=== PATIENT | male | born 1945 | race Caucasian/White ===

== ENCOUNTER 2025-01-14 14:50 | Inpatient (IN) | payer MEDICARE, OTHER, SELFPAY ==
[2025-01-14] VITALS (20 sets, daily range): BP systolic 109–147; BP diastolic 71–109; PULSE 79–130; RESP 11–23; TEMP 36.6–36.7; O2SAT 80–99; BMI 30.3; BMI 28.8
--- NOTE | ~2025-01-14 | CT_ITS ---
CTA abdomen pelvis INDICATION: gi bleed COMPARISON: None. TECHNIQUE: Axial 2.5 mm images of the abdomen and pelvis were obtained without and with infusion of 100 cc Isovue-300 intravenous contrast. On an independent workstation, 0.625 mm reformatted images were utilized to render MIP and MPR reconstructed images of the abdominal and pelvic vasculature. FINDINGS: The abdominal aorta, visceral vessels and renal arteries demonstrate normal caliber and patency. There are atherosclerotic vascular calcification within the renal artery and aorta as well as the branch vessels. There is marked atherosclerotic plaques at the origin of the right internal iliac artery is causing focal severe stenosis. The vessel fills normally distally. There is no aortic aneurysm. The left iliac and visualized femoral vessels are widely patent. There is no blush to suggest active GI bleeding. NONVASCULAR FINDINGS: The liver parenchyma is unremarkable. No intrahepatic mass or ductal dilatation is evident. The gallbladder is unremarkable. The pancreas and spleen are normal in appearance. The adrenal glands are symmetric in size. The kidneys are unremarkable. No intrarenal stones are noted. There is no hydronephrosis. Colonic diverticulosis without evidence of acute diverticulitis. The stomach and bowel loops are unremarkable. The bladder and rectum are normal in appearance. No free fluid or air is evident. There is no abdominal or pelvic lymphadenopathy. The lower thoracic and lumbar spines are unremarkable. The lung bases are clear. IMPRESSION: There is marked atherosclerotic plaque at the origin of the right internal iliac artery causing severe stenosis. The basilar fills distally. Clinically indicated a follow-up conventional angiogram can be done for further evaluation. There is no blush to suggest acute GI bleed. Colonic diverticulosis without evidence of acute diverticulitis. All CT scans at this facility are performed using low dose modulation techniques as appropriate to perform exam including the following: automated exposure control; use of iterative reconstruction technique; adjustment of the mA and/or kV according to patient size (this includes techniques or standardized protocols for targeted exams where dose is matched to indication/reason for exam). Reviewed, dictated and finalized at location S. IMPRESSION: There is marked atherosclerotic plaque at the origin of the right internal sancho c artery causing severe stenosis. The basilar fills distally. Clinically indica amanuel a follow-up conventional angiogram can be done for further evaluation. There is no blush to suggest acute GI bleed. Colonic diverticulosis without evidence of acute diverticulitis. All CT scans at this facility are performed using low dose modulation techniqu es as appropriate to perform exam including the following: automated exposure c ontrol; use of iterative reconstruction technique; adjustment of the mA and/or kV according to patient size (this includes techniques or standardized protocol s for targeted exams where dose is matched to indication/reason for exam).
--- NOTE | ~2025-01-14 | XR_ITS ---
EXAMINATION: XR chest 1V portable COMPARISON: No comparisons available. HISTORY: new onset afib, vomiting, sob FINDINGS: The lungs are clear, no effusion. No pneumothorax. Heart is normal size. Mediastinal and hilar contours are within normal limits. Bony thorax no acute abnormality. Miscellaneous: None Impression: No acute cardiopulmonary abnormality. Reviewed, dictated and finalized at location P. Impression: No acute cardiopulmonary abnormality.
--- NOTE | 2025-01-14 15:01 | ECG_ITS ---
Test Date: 2025-01-14 15:05:24 Measurements Intervals Welsh Rate: 122 P: 0 WI: 0 QRS: -80 QRSD: 130 T: 66 QT: 335 QTc: 478 Interpretive Statements SINUS TACHYCARDIA RIGHT BUNDLE BRANCH BLOCK LEFT ANTERIOR FASCICULAR BLOCK BASELINE ARTIFACT- I, III, AVR, AVL, AVF ABNORMAL ECG No previous ECG available for comparison Electronically Signed On 01-14-2025 15:16:27 CDT by Matti Barrett D.O.
--- NOTE | 2025-01-14 15:07 | ED.GIBLEED ---
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 Patient reports he has been vomiting dark black coffee-ground material for the past 2 days. He he also reports having dark black stools for the past 2 days. Reports having intermittent abdominal cramping, dizziness, weakness, shortness of breath with exertion. Denies chest pain. Patient is not on any anticoagulation that he is aware of. Takes an aspirin 81mg daily. GENERAL: Elderly, ill appearing, obese with BMI of 30.3, and in no acute distress. HEAD: Normocephalic, atraumatic. CHEST: Clear to auscultation. ?No respiratory distress. HEART: Tachycardic with irregular rhythm.? NEURO: ?Alert and oriented x3. Patient screened in triage and initial orders placed.? ?Additional care and disposition to be based upon?diagnostic testing and treatment. <Leyla Gould PA-C - Last Filed: 01/14/25 15:12> Source: patient <Leyla Gould PA-C - Last Filed: 01/14/25 15:12> Mode of arrival: ambulatory <Leyla Gould PA-C - Last Filed: 01/14/25 15:12> Limitations: no limitations <NORM Hendrix Last Filed: 01/14/25 15:12> History of Present Illness HPI Narrative: Agree with HPI <Flaquito Vera MD - Last Filed: 01/14/25 22:33> Related Data Home medications: Home Medications ?Medication ?Instructions ?Recorded ?Confirmed ?Last Taken ?Type allopurinol 100 mg tablet 100 mg PO DAILY 01/14/25 01/14/25 01/12/25 History amlodipine 5 mg tablet 5 mg PO DAILY HTN 01/14/25 01/14/25 01/12/25 History aspirin 325 mg capsule 325 mg PO DAILY 01/14/25 01/14/25 01/12/25 History cholecalciferol (vitamin D3) 25 25 mcg PO DAILY 01/14/25 01/14/25 01/12/25 History mcg (1,000 unit) capsule finasteride 5 mg tablet 5 mg PO DAILY 01/14/25 01/14/25 01/12/25 History lisinopril 40 mg tablet 40 mg PO DAILY 01/14/25 01/14/25 01/12/25 History metformin 1,000 mg tablet 500 mg PO BID 01/14/25 01/14/25 01/12/25 History metoprolol tartrate 50 mg tablet 25 mg PO BID 01/14/25 01/14/25 01/12/25 History simvastatin 80 mg tablet 40 mg PO HS 01/14/25 01/14/25 01/12/25 History <Leyla Gould PA-C - Last Filed: 01/14/25 15:12> Allergies/Adverse reactions: Allergies Allergy/AdvReac Type Severity Reaction Status Date / Time No Known Allergies Allergy Verified 01/14/25 18:52 <Leyla Gould PA-C - Last Filed: 01/14/25 15:12> Review of Systems Review of Systems: Gen.: Denies fevers or chills Eyes: Denies eye pain or visual change ENT: Denies congestion Respiratory: Denies shortness of breath or cough CV: Denies chest pain or palpitations GI: As per HPI denies burning, urgency, frequency or hematuria Musculoskeletal: Denies back pain or muscle pain Neuro: Denies numbness, tingling, weakness or focal weakness Skin: Denies rash Except as documented, all other systems reviewed and negative <Flaquito Vera MD - Last Filed: 01/14/25 22:33> [facility] Social History Social History: Social History Smoking status: Former smoker Alcohol intake: never Substance use: never Lack of Transportation: No Lack of Food: Never True Current Housing: I Have Housing Concerned About Future Housing: No Difficulty Paying Gas/Electric Bills: No Difficulty Paying for Meds: No Currently Unemployed: No Education: High School Diploma/GED Difficulty w/ Childcare or Family Care: No Spiritual care concerns: No <Leyla Gould PA-C - Last Filed: 01/14/25 15:12> Exam Narrative: APPEARANCE: No acute distress, nontoxic, resting in bed EYES: EOMI HEENT: Normocephalic, atraumatic, OMM RESPIRATORY: No respiratory distress Clear to auscultation bilaterally with no rhonchi wheezing or rales. CARDIOVASCULAR: Irregularly irregular without murmurs rubs or gallops. ABDOMINAL: Soft, mild epigastric tenderness to palpation, nondistended, no rebound or guarding MUSCULOSKELETAl: Moves all extremities. No clubbing, cyanosis or edema. NEURO: Awake and alert. Following commands, speech normal, no focal deficits SKIN:: Warm, dry. No rashes lesions or abrasions PSYCHIATRIC: Normal affect/mood, <Flaquito Vera MD - Last Filed: 01/14/25 22:33> Course Vital Signs Vital signs: Vital Signs Temperature 97.9 F 01/14/25 14:57 Pulse Rate 130 H 01/14/25 14:57 Respiratory Rate 18 01/14/25 14:57 Blood Pressure 145/79 H 01/14/25 14:57 Pulse Oximetry 98 01/14/25 14:57 Oxygen Delivery Room Air 01/14/25 14:57 Temperature 98.0 F 01/14/25 20:00 Pulse Rate 79 01/14/25 22:00 Respiratory Rate 18 01/14/25 20:00 Blood Pressure 127/82 01/14/25 20:00 Pulse Oximetry 95 01/14/25 20:00 Oxygen Delivery Room Air 01/14/25 14:57 <Leyla Gould PA-C - Last Filed: 01/14/25 15:12> Vital Signs Temperature 97.9 F 01/14/25 14:57 Pulse Rate 130 H 01/14/25 14:57 Respiratory Rate 18 01/14/25 14:57 Blood Pressure 145/79 H 01/14/25 14:57 Pulse Oximetry 98 01/14/25 14:57 Oxygen Delivery Room Air 01/14/25 14:57 Temperature 98.0 F 01/14/25 20:00 Pulse Rate 79 01/14/25 22:00 Respiratory Rate 18 01/14/25 20:00 Blood Pressure 127/82 01/14/25 20:00 Pulse Oximetry 95 01/14/25 20:00 Oxygen Delivery Room Air 01/14/25 14:57 <Flaquito Vera MD - Last Filed: 01/14/25 22:33> MDM - GI Bleed MDM Narrative Medical decision making narrative: MSE by DILLON in triage. <Leyla Gould PA-C - Last Filed: 01/14/25 15:12> MSE by DILLON in triage. 79-year-old male presenting for concerns for GI bleed. On initial evaluation, patient was in no acute distress afebrile, hemodynamically stable. He was tachycardic to the 130s on the monitor did appear to be in AFib. Patient was started Cardizem drip and bolus. Patient had multiple small episodes coffee-ground emesis in his. Abdomen remains soft and nontender. He had a leukocytosis at 15.2 with anemia at 10.6. Lactic acid was elevated at 6.2. Creatinine elevated to 1.85. He had an anion gap of 20 likely due to the lactic acidosis. Chest x-ray showed no acute process. CTA abdomen pelvis was obtained due to likely GI bleed which showed no acute GI bleed, did show a significant stenosis of the right iliac artery. Case was discussed with GI, Dr. Jackson, who will see the patient as consult. Case was discussed with hospitalist who will admit the patient. <Flaquito Vera MD - Last Filed: 01/14/25 22:33> Differential Diagnosis Differential diagnosis: Likely Alexa-Michael syndrome, Upper gastrointestinal hemorrhage, Lower gastrointestinal hemorrhage, hematochezia, melena and other (AFib, ACS) <Flaquito Vera MD - Last Filed: 01/14/25 22:33> Medical Records Attestation: I reviewed the patient's medical records. <Flaquito Vera MD - Last Filed: 01/14/25 22:33> Lab Data Attestation: I reviewed the patient's lab results. <Flaquito Vera MD - Last Filed: 01/14/25 22:33> Result diagrams: 01/14/25 17:35 01/14/25 15:19 <Leyla Gould PA-C - Last Filed: 01/14/25 15:12> Labs: Lab Results 01/14/25 Range/Units 15:19 WBC 16.7 H (4.5-10.0) K/mm3 RBC 3.63 L (4.6-6.20) M/mm3 Hgb 11.4 L (14.0-18.0) g/dL Hct 34.1 L (42.0-52.0) % MCV 93.9 (80-100) fl MCH 31.4 (26-34) pg MCHC 33.4 (32-36) g/dl RDW 13.6 (11.5-14.5) % Plt Count 291 (150-375) k/mm3 MPV 9.5 (7.4-10.4) fl Immature Gran % (Auto) 0.8 H (0-0.5) % Neut % (Auto) 86.3 H (45.5-73.1) % Lymph % (Auto) 9.6 L (18.3-44.2) % Barnwell % (Auto) 3.1 (2.6-8.5) % Eos % (Auto) 0.0 (0-4.4) % Baso % (Auto) 0.2 (0.2-1.2) % Lymph # (Auto) 1.61 (0.9-3.2) K/mm3 Barnwell # (Auto) 0.5 (0.1-0.6) K/mm3 Eos # (Auto) 0.0 (0-0.3) K/mm3 Baso # (Auto) 0.0 (0.0-0.1) K/mm3 Abs Immat Gran (auto) 0.13 H (0.00-0.031) K/mm3 Absolute Neuts (auto) 14.4 H (1.3-6.7) K/mm3 Absolute Nucleated RBC 0.000 (0.0-0.012) K/mm3 Nucleated RBC % 0.0 (0.0-0.2) % PT 13.9 (11.1-14.7) Seconds INR 1.1 APTT 22.7 (22.3-36.8) Seconds Sodium 140 (137-145) mmol/L Potassium 4.7 (3.4-5.0) mmol/L Chloride 106 (98-107) mmol/L Carbon Dioxide 14 L (22-30) mmol/L Anion Gap 20 H (4-12) mmol/L BUN 59 H (9-20) mg/dL Creatinine 1.85 H (0.7-1.3) mg/dL Estim Creat Clear Calc 29 ml/min Estimated GFR 35 L (59 - ) Glucose 230 H (65-110) mg/dL Lactic Acid 6.2 H* (0.7-2.0) mmol/L Calcium 9.3 (8.4-10.2) mg/dL Magnesium 1.6 (1.6-2.3) mg/dL Total Bilirubin 1.8 H (0.2-1.3) mg/dL AST 36 (17-59) U/L ALT 44 (6-50) U/L Alkaline Phosphatase 48 (38-126) U/L Troponin I 0.032 (0.000-0.034) ng/mL Total Protein 7.9 (6.3-8.2) g/dL Albumin 4.7 (3.5-5.1) g/dL Blood Type A Positive Antibody Screen Negative <Leyla Gould PA-C - Last Filed: 01/14/25 15:12> Lab Results 01/14/25 Range/Units 15:19 WBC 16.7 H (4.5-10.0) K/mm3 RBC 3.63 L (4.6-6.20) M/mm3 Hgb 11.4 L (14.0-18.0) g/dL Hct 34.1 L (42.0-52.0) % MCV 93.9 (80-100) fl MCH 31.4 (26-34) pg MCHC 33.4 (32-36) g/dl RDW 13.6 (11.5-14.5) % Plt Count 291 (150-375) k/mm3 MPV 9.5 (7.4-10.4) fl Immature Gran % (Auto) 0.8 H (0-0.5) % Neut % (Auto) 86.3 H (45.5-73.1) % Lymph % (Auto) 9.6 L (18.3-44.2) % Barnwell % (Auto) 3.1 (2.6-8.5) % Eos % (Auto) 0.0 (0-4.4) % Baso % (Auto) 0.2 (0.2-1.2) % Lymph # (Auto) 1.61 (0.9-3.2) K/mm3 Barnwell # (Auto) 0.5 (0.1-0.6) K/mm3 Eos # (Auto) 0.0 (0-0.3) K/mm3 Baso # (Auto) 0.0 (0.0-0.1) K/mm3 Abs Immat Gran (auto) 0.13 H (0.00-0.031) K/mm3 Absolute Neuts (auto) 14.4 H (1.3-6.7) K/mm3 Absolute Nucleated RBC 0.000 (0.0-0.012) K/mm3 Nucleated RBC % 0.0 (0.0-0.2) % PT 13.9 (11.1-14.7) Seconds INR 1.1 APTT 22.7 (22.3-36.8) Seconds Sodium 140 (137-145) mmol/L Potassium 4.7 (3.4-5.0) mmol/L Chloride 106 (98-107) mmol/L Carbon Dioxide 14 L (22-30) mmol/L Anion Gap 20 H (4-12) mmol/L BUN 59 H (9-20) mg/dL Creatinine 1.85 H (0.7-1.3) mg/dL Estim Creat Clear Calc 29 ml/min Estimated GFR 35 L (59 - ) Glucose 230 H (65-110) mg/dL Lactic Acid 6.2 H* (0.7-2.0) mmol/L Calcium 9.3 (8.4-10.2) mg/dL Magnesium 1.6 (1.6-2.3) mg/dL Total Bilirubin 1.8 H (0.2-1.3) mg/dL AST 36 (17-59) U/L ALT 44 (6-50) U/L Alkaline Phosphatase 48 (38-126) U/L Troponin I 0.032 (0.000-0.034) ng/mL Total Protein 7.9 (6.3-8.2) g/dL Albumin 4.7 (3.5-5.1) g/dL Blood Type A Positive Antibody Screen Negative <Flaquito Vera MD - Last Filed: 01/14/25 22:33> Imaging Data Attestation: I personally reviewed and interpreted this imaging study as follows: <Flaquito Vera MD - Last Filed: 01/14/25 22:33> Radiologist's impression: Impressions Chest X-Ray 01/14/25 15:37 Impression: No acute cardiopulmonary abnormality. Abdomen/Pelvis CTA 01/14/25 16:38 IMPRESSION: There is marked atherosclerotic plaque at the origin of the right internal iliac artery causing severe stenosis. The basilar fills distally. Clinically indicated a follow-up conventional angiogram can be done for further evaluation. There is no blush to suggest acute GI bleed. Colonic diverticulosis without evidence of acute diverticulitis. All CT scans at this facility are performed using low dose modulation techniques as appropriate to perform exam including the following: automated exposure control; use of iterative reconstruction technique; adjustment of the mA and/or kV according to patient size (this includes techniques or standardized protocols for targeted exams where dose is matched to indication/reason for exam). <Flaquito Vera MD - Last Filed: 01/14/25 22:33> ECG Data EKG #1: Attestation: I personally reviewed and interpreted this ECG as follows: <Flaquito Vera MD - Last Filed: 01/14/25 22:33> ECG completion date: 01/14/25 <Flaquito Vera MD - Last Filed: 01/14/25 22:33> ECG completion time: 15:05 <Flaquito Vera MD - Last Filed: 01/14/25 22:33> Interpretation: Sinus tachycardia rate of 130, right bundle-branch block, left anterior fascicular block, no acute ST or T-wave changes <Flaquito Vera MD - Last Filed: 01/14/25 22:33> Discharge Plan Discharge Clinical Impression: Acute upper GI bleed, Acidosis, lactic, RADHA (acute kidney injury) <NORM Hendrix Last Filed: 01/14/25 15:12> Patient Disposition: Still a Patient <Leyla Gould PA-C - Last Filed: 01/14/25 15:12> Condition: Serious <Leyla Gould PA-C - Last Filed: 01/14/25 15:12>
[2025-01-14 15:27] LABS: Hematocrit 34.1 % (42.0-52.0); Hemoglobin 11.4 g/dL (14.0-18.0); Immature Granulocyte Percent A 0.8 % (0-0.5); Lymphocytes Absolute Auto 1.61 K/mm3 (0.9-3.2); Mean Corpuscular HGB Conc 33.4 g/dl (32-36); Mean Corpuscular Hemoglobin 31.4 pg (26-34); Mean Corpuscular Volume 93.9 fl (80-100); Nucleated Red Blood Cells Absolute Auto 0.000 K/mm3 (0.0-0.012); Nucleated Red Blood Cells Perc 0.0 % (0.0-0.2); Platelet Count Result 291 k/mm3 (150-375); Red Blood Count 3.63 M/mm3 (4.6-6.20); White Blood Count 16.7 K/mm3 (4.5-10.0)
[2025-01-14] MEDS: PANTOPRAZOLE SODIUM IV 40 MG VIAL IV PUSH (15:27)
[2025-01-14 15:39] LABS: Alanine Aminotransferase 44 U/L (6-50); Albumin Level 4.7 g/dL (3.5-5.1); Alkaline Phosphatase 48 U/L (38-126); Anion Gap 20 mmol/L (4-12); Aspartate Amino Transferase 36 U/L (17-59); Bilirubin,Total 1.8 mg/dL (0.2-1.3); Blood Urea Nitrogen 59 mg/dL (9-20); Calcium 9.3 mg/dL (8.4-10.2); Carbon Dioxide 14 mmol/L (22-30); Chloride 106 mmol/L (98-107); Estimated CRCL calculation 29 ml/min; Estimated Glomerular Filt Rate 35; Glucose 230 mg/dL (65-110); Magnesium 1.6 mg/dL (1.6-2.3); Potassium 4.7 mmol/L (3.4-5.0); Sodium 140 mmol/L (137-145); Total Protein 7.9 g/dL (6.3-8.2)
[2025-01-14 15:50] LABS: Troponin I 0.032 ng/mL (0.000-0.034)
[2025-01-14 15:51] LABS: INR 1.1; Prothrombin Time 13.9 Seconds (11.1-14.7)
[2025-01-14 15:52] LABS: Partial Thromboplastin Time 22.7 Seconds (22.3-36.8)
[2025-01-14] MEDS: ONDANSETRON INJ 4 MG/2 ML VIAL IV PUSH (16:02)
[2025-01-14] MEDS: PANTOPRAZOLE SODIUM IV 40 MG VIAL 80 MG IV PUSH (17:16)
[2025-01-14] MEDS: dilTIAZem 100 MG/100 ML 100 MG/100 ML BAG IV CONT (17:22)
--- NOTE | 2025-01-14 17:46 | PC.NURSE ---
RN ordered a dinner tray for patient.
[2025-01-14 17:51] LABS: Hematocrit 31.7 % (42.0-52.0); Hemoglobin 10.6 g/dL (14.0-18.0); Immature Granulocyte Percent A 0.7 % (0-0.5); Lymphocytes Absolute Auto 1.43 K/mm3 (0.9-3.2); Mean Corpuscular HGB Conc 33.4 g/dl (32-36); Mean Corpuscular Hemoglobin 31.3 pg (26-34); Mean Corpuscular Volume 93.5 fl (80-100); Nucleated Red Blood Cells Absolute Auto 0.000 K/mm3 (0.0-0.012); Nucleated Red Blood Cells Perc 0.0 % (0.0-0.2); Platelet Count Result 258 k/mm3 (150-375); Red Blood Count 3.39 M/mm3 (4.6-6.20); White Blood Count 15.2 K/mm3 (4.5-10.0)
--- NOTE | 2025-01-14 18:47 | PC.NURSE ---
Arrived to the floor via stretcher at approximately 1823pm. Transferred from the stretcher to the bed. Cardizem drip on and infusing through IV pump. Denies chest pain or shortness of breath. Patient states that in the event his heart should stop or he should stop breathing he would be ok with one round of CPR. He further states that he hasn't discussed his code status with his family, so this nurse encourage him to discuss further with his daughters who are at bedside and update us. One of his daughters is a EMT and would like to clarify code status with him. Vital signs obtained at this time. On room air. No acute distress noted. Skin intact.
--- NOTE | 2025-01-14 20:49 | P.HP_ITS ---
H&P: HPI History of Present Illness Date/Time: 01/14/25 20:49 Chief Complaint: Coffee-ground emesis Narrative: This is a pleasant 79-year-old male with past medical history remote CABG, prior smoking, inh-tbdndli-apppznnbf diabetes mellitus, dyslipidemia, BPH, hypertension. Patient presents to [facility] ER on 01/14/2025 with the acute onset of multiple episodes of coffee-ground emesis and dark stools. The patient has never had this issue before, no history of GERD, no alcohol use, no pain killer use. He does take a aspirin 325 mg p.o. q.day ever since his CABG about 20 years ago. He has not seen a gate tender since then, has not smoked. Denies abdominal pain, chest pain, shortness of breath, cough, fever. It is reported patient was started on diltiazem in the ER for AFib with RVR. EKG demonstrates sinus tachycardia. Patient is currently in sinus tachycardia. Hemoglobin 10.6, white count 15.2, afebrile. Serum creatinine 1.85, anion gap 20, lactic acid 6.2, repeat 5.2. Patient given Protonix 40 mg IV an 80 mg IV, Zofran. Does not appear he was started on fluids. Review of Systems Review of Systems: All systems reviewed & are unremarkable except as noted in HPI and below (Subjective) [facility] Social History Social History Smoking status: Former smoker Alcohol intake: never Substance use: never Lack of Transportation: No Lack of Food: Never True Current Housing: I Have Housing Concerned About Future Housing: No Difficulty Paying Gas/Electric Bills: No Difficulty Paying for Meds: No Currently Unemployed: No Education: High School Diploma/GED Difficulty w/ Childcare or Family Care: No Spiritual care concerns: No Meds Home Medications and Allergies Home Medications ?Medication ?Instructions ?Recorded ?Confirmed ?Type allopurinol 100 mg tablet 100 mg PO DAILY 01/14/25 History amlodipine 5 mg tablet 5 mg PO DAILY HTN 01/14/25 1 History aspirin 325 mg capsule 325 mg PO DAILY 01/14/25 History cholecalciferol (vitamin D3) 25 25 mcg PO DAILY 01/14/25 History mcg (1,000 unit) capsule finasteride 5 mg tablet 5 mg PO DAILY 01/14/2501/14 History lisinopril 40 mg tablet 40 mg PO DAILY 01/14/2512/27 History metformin 1,000 mg tablet 500 mg PO BID 01/14/2501/14 History metoprolol tartrate 50 mg tablet 25 mg PO BID 01/14/25 01/14/25 History simvastatin 80 mg tablet 40 mg PO HS 01/14/25 5 History Allergies Allergy/AdvReac Type Severity Reaction Status Date / Time No Known Allergies Allergy Verified 01/14/25 18:52 Vital Signs Vital Signs - 24 hr 01/14/25 14:57 01/14/25 15:13 01/14/25 15:21 Temperature 97.9 F Pulse Rate 130 H 126 H 126 H Respiratory Rate 18 16 17 Blood Pressure 145/79 H 135/94 H Pulse Oximetry 98 97 97 Oxygen Delivery Room Air 01/14/25 15:30 01/14/25 15:31 01/14/25 15:45 Temperature Pulse Rate 122 H 112 H 119 H Respiratory Rate 17 17 20 Blood Pressure 147/109 H Pulse Oximetry 98 98 95 Oxygen Delivery 01/14/25 15:46 01/14/25 15:47 01/14/25 16:27 Temperature Pulse Rate 117 H 118 H 104 H Respiratory Rate 18 21 H 16 Blood Pressure 139/103 H 109/71 Pulse Oximetry 95 96 92 Oxygen Delivery 01/14/25 16:28 01/14/25 16:29 01/14/25 16:30 Temperature Pulse Rate 108 H 108 H 106 H Respiratory Rate 23 H 19 11 L Blood Pressure 142/98 H 142/98 H Pulse Oximetry 97 80 L Oxygen Delivery 01/14/25 16:52 01/14/25 17:00 01/14/25 17:22 Temperature Pulse Rate 112 H 112 H 114 H Respiratory Rate 14 20 Blood Pressure 131/99 H 131/99 H Pulse Oximetry 95 96 Oxygen Delivery 01/14/25 17:48 01/14/25 18:48 01/14/25 20:00 Temperature 98.0 F 98.0 F Pulse Rate 110 H 113 H 112 H Respiratory Rate 20 18 18 Blood Pressure 131/86 135/102 H 127/82 Pulse Oximetry 97 99 95 Oxygen Delivery Exam Const: General: comfortable and no acute distress Other: A&O x4 HENMT: Mouth: Yes dry mucous membranes Eyes: Pupils: Equal, round and reactive pupils present Neck: Neck: supple Resp: Effort & Inspection: normal respiratory effort Auscultation: clear to auscultation bilaterally Cardio: Rate: regular rate Rhythm: regular rhythm Heart sounds: no gallops and no murmurs GI: Inspection: non-distended GI Palp: Yes Soft to palpation and Yes Tenderness to palpation present (GI) Auscultation: normal bowel sounds : General: Yes bladder normal to palpation Neuro: Motor exam (neuro): 5/5 motor strength present throughout Extrem: General: no edema H&P: Results Labs Labs: Short CBC 01/14/25 01/14/25 Range/Units 15:19 17:35 WBC 16.7 H 15.2 H (4.5-10.0) K/mm3 Hgb 11.4 L 10.6 L (14.0-18.0) g/dL Hct 34.1 L 31.7 L (42.0-52.0) % Plt Count 291 258 (150-375) k/mm3 BMP 01/14/25 15:19 Sodium 140 Potassium 4.7 Chloride 106 Carbon Dioxide 14 L BUN 59 H Creatinine 1.85 H Glucose 230 H Calcium 9.3 Cardiac Enzymes 01/14/25 Range/Units 15:19 Troponin I 0.032 (0.000-0.034) ng/mL Liver Function 01/14/25 Range/Units 15:19 Total Bilirubin 1.8 H (0.2-1.3) mg/dL AST 36 (17-59) U/L ALT 44 (6-50) U/L Alkaline Phosphatase 48 (38-126) U/L Albumin 4.7 (3.5-5.1) g/dL Assessment and Plan Assessment and plan (1) Acute upper GI bleed: Code(s): K92.2 - Gastrointestinal hemorrhage, unspecified Status: Acute (2) Sinus tachycardia: Code(s): R00.0 - Tachycardia, unspecified Status: Acute (3) Elevated serum creatinine: Code(s): R79.89 - Other specified abnormal findings of blood chemistry Status: Acute Plan This is a pleasant 79-year-old male with past medical history remote CABG, prior smoking, puz-tnonspo-euhsqvens diabetes mellitus, dyslipidemia, BPH, hypertension. [facility] Patient [facility] to [facility] ER on 01/14/2025 with the acute onset of multiple episodes of coffee-ground emesis and dark stools. The patient has never had this issue before, no history of GERD, no alcohol use, no pain killer use. He does take a aspirin 325 mg p.o. q.day ever since his CABG about 20 years ago. He has not seen a gate tender since then, has not smoked. Denies abdominal pain, chest pain, shortness of breath, cough, fever. It is reported patient was started on diltiazem in the ER for AFib with RVR. EKG demonstrates sinus tachycardia. Patient is currently in sinus tachycardia. Hemoglobin 10.6, white count 15.2, afebrile. Serum creatinine 1.85, anion gap 20, lactic acid 6.2, repeat 5.2. Patient given Protonix 40 mg IV an 80 mg IV, Zofran. Does not appear he was started on fluids. ----- Presents with suspected acute upper GI bleed. He is hemodynamically stable. Clear liquid diet. GI consultation. Could be due to aspirin 325 mg p.o. q.day. trend hemoglobin Q 4-6 hours. Lactic acidosis: 6.2 on admission, 5.2 on repeat. Does not appear the patient was given any volume resuscitation. Start lactated Ringer's at 100 cc/hour, recheck lactic acid at midnight. Elevated serum creatinine and anion gap likely related. Patient unaware of any previous kidney disease. Continue to trend renal function. Troponin on the normal high value of 0.032 on admission. Patient denies chest pain. Does have sinus tachycardia. Recheck troponin at midnight. Leukocytosis: Likely reactive, patient afebrile without symptomatology or evidence to indicate infection, nontoxic appearing. Could be stress reaction. Continue to monitor and trend. A CTA abdomen pelvis performed in the ER demonstrates diverticulosis without diverticulitis. There is marked atherosclerotic plaque at the origin of the right internal iliac artery causing severe stenosis, the basilar fills distally. When patient is more stable and serum creatinine has improved we could perform a conventional angiogram. Patient is unaware of this issue, would continue aspirin on discharge. Pedal pulses bilaterally intact, patient denies any loss of sensation. Patient reported to have AFib with RVR however documentation including EKG and physical exam in the ER support sinus tachycardia. On telemetry in the IMU he is currently sinus tachycardia as well. Likely due to his acute hemorrhage. Treat underlying issue with lactated Ringer's, continue to monitor on telemetry. Discontinue diltiazem. Restart [employer] metoprolol tartrate 25 mg p.o. b.i.d.. Check TSH. Hold [employer] lisinopril and amlodipine. Accu-Cheks a.c. HS with low-dose insulin sliding scale and hypoglycemia protocol. ----- Patient wishes to be full code. Lactated Ringer's SCDs Gastroenterology consultation. Clear liquid diet. Marijuana smoker, counseling provided. Denies tobacco abuse, alcohol, recreational drug use. Hospitalist MIPS Advance Care Plan I have confirmed that the patient's Advanced Care Plan is present, code status is documented, or surrogate decision maker is listed in patient medical record.: Yes Medication Reconciliation I have utilized all available resources to obtain, update and review the patients current medications (includes all prescriptions, OTC, herbals, cannabis, and nutritional supplements).: Yes
[2025-01-14] MEDS: METOPROLOL TARTRATE 25 MG TABLET PO (21:11)
[2025-01-14] MEDS: LACTATED RINGERS 1,000 ML 100 ML IV CONT (21:12)
[2025-01-14 23:31] LABS: Anion Gap 12 mmol/L (4-12); Blood Urea Nitrogen 57 mg/dL (9-20); Calcium 8.9 mg/dL (8.4-10.2); Carbon Dioxide 20 mmol/L (22-30); Chloride 104 mmol/L (98-107); Estimated CRCL calculation 27 ml/min; Estimated Glomerular Filt Rate 37; Glucose 159 mg/dL (65-110); Potassium 4.6 mmol/L (3.4-5.0); Sodium 136 mmol/L (137-145)
[2025-01-14 23:32] LABS: Hematocrit 28.2 % (42.0-52.0); Hemoglobin 9.4 g/dL (14.0-18.0)
[2025-01-14 23:48] LABS: Procalcitonin 0.1 ng/mL
[2025-01-15] VITALS (18 sets, daily range): BP systolic 104–120; BP diastolic 65–71; PULSE 61–83; RESP 14–20; TEMP 36.8; O2SAT 95–100
[2025-01-15 00:03] LABS: Thyroid Stimulating Hormone Reflex 1.940 uIU/mL (0.465-4.68)
[2025-01-15 04:44] LABS: Hematocrit 27.6 % (42.0-52.0); Hemoglobin 9.1 g/dL (14.0-18.0); Immature Granulocyte Percent A 0.5 % (0-0.5); Lymphocytes Absolute Auto 2.49 K/mm3 (0.9-3.2); Mean Corpuscular HGB Conc 33.0 g/dl (32-36); Mean Corpuscular Hemoglobin 31.3 pg (26-34); Mean Corpuscular Volume 94.8 fl (80-100); Nucleated Red Blood Cells Absolute Auto 0.000 K/mm3 (0.0-0.012); Nucleated Red Blood Cells Perc 0.0 % (0.0-0.2); Platelet Count Result 230 k/mm3 (150-375); Red Blood Count 2.91 M/mm3 (4.6-6.20); White Blood Count 13.0 K/mm3 (4.5-10.0)
[2025-01-15 05:04] LABS: Alanine Aminotransferase 24 U/L (6-50); Albumin Level 3.8 g/dL (3.5-5.1); Alkaline Phosphatase 37 U/L (38-126); Anion Gap 10 mmol/L (4-12); Aspartate Amino Transferase 37 U/L (17-59); Bilirubin,Total 1.4 mg/dL (0.2-1.3); Blood Urea Nitrogen 53 mg/dL (9-20); Calcium 8.5 mg/dL (8.4-10.2); Carbon Dioxide 23 mmol/L (22-30); Chloride 104 mmol/L (98-107); Estimated CRCL calculation 32 ml/min; Estimated Glomerular Filt Rate 40; Glucose 125 mg/dL (65-110); Magnesium 1.6 mg/dL (1.6-2.3); Potassium 4.5 mmol/L (3.4-5.0); Sodium 137 mmol/L (137-145); Total Protein 6.1 g/dL (6.3-8.2)
[2025-01-15] MEDS: LACTATED RINGERS 1,000 ML 100 ML IV CONT ×2 (06:51→20:00)
--- NOTE | 2025-01-15 07:45 | P.PNIM_ITS ---
Progress Note: A&P Assessment and Plan (1) Acute upper GI bleed: Code(s): K92.2 - Gastrointestinal hemorrhage, unspecified Status: Acute Assessment and Plan: --->CTA abdomen pelvis performed in the ER demonstrates diverticulosis without diverticulitis. There is marked atherosclerotic plaque at the origin of the right internal iliac artery causing severe stenosis, the basilar fills distally. When patient is more stable and serum creatinine has improved we could perform a conventional angiogram. - hemodynamically stable. -started on Clear liquid diet. NPO at this time for EGD -->GI consultation. EGD today -->Could be due to aspirin 325 mg p.o. q.day. -->trend hemoglobin --11.4--10.6--9.4--9.1 --> Patient given Protonix 40 mg IV an 80 mg IV, Zofran. Does not appear he was started on fluids. (2) Sinus tachycardia: Code(s): R00.0 - Tachycardia, unspecified Status: Acute Assessment and Plan: -->It is reported patient was started on diltiazem in the ER for AFib with RVR. -->EKG demonstrates sinus tachycardia. -->Patient is currently in sinus tachycardia. - Discontinue diltiazem. -Restart [employer] metoprolol tartrate 25 mg p.o. b.i.d.. - TSH. - Hold [employer] lisinopril and amlodipine. - Troponin on the normal high value of 0.032 on admission. - Patient denies chest pain. Does have sinus tachycardia. - Recheck troponin at midnight. (3) Elevated serum creatinine: Code(s): R79.89 - Other specified abnormal findings of blood chemistry Status: Acute Assessment and Plan: - Elevated serum creatinine - Patient unaware of any previous kidney disease. - Continue to trend renal function. (4) Acidosis, lactic: Code(s): E87.20 - Acidosis, unspecified Status: Acute Assessment and Plan: Lactic acidosis: 6.2 on admission, 5.2 on repeat. - Does not appear the patient was given any volume resuscitation - lactated Ringer's at 100 cc/hour, recheck lactic acid at midnight - (5) RADHA (acute kidney injury): Code(s): N17.9 - Acute kidney failure, unspecified Status: Acute Assessment and Plan: --> unaware of renal disease history --> trend labs BUN - 59--57--53 creat 1.85--1.77-1.66 GFR - 35--37--40 (6) Hypertension associated with type 2 diabetes mellitus: Code(s): E11.59 - Type 2 diabetes mellitus with other circulatory complications; I15.2 - Hypertension secondary to endocrine disorders Status: Acute Assessment and Plan: - Accu-Cheks a.c. HS with low-dose insulin sliding scale - hypoglycemia protocol. (7) GI bleed: Code(s): K92.2 - Gastrointestinal hemorrhage, unspecified Status: Acute Plan Code status - full code Fluids - Lactated Ringer's SCDs Diet - NPO for EGD at 1 pm Marijuana smoker, counseling provided. Denies tobacco abuse, alcohol, recreational drug use. disposition - will continue to monitor, will work with GI on care plan and treatment, once stable patient will be discharged home with out Time Spent With Patient Time with patient: Greater than 35 minutes Subjective Date/time seen: 01/15/25 07:45 Interval history: This is a pleasant 79-year-old male with past medical history remote CABG, prior smoking, sho-[id number] diabetes mellitus, dyslipidemia, BPH, hypertension. [facility] Patient presented to [facility] ER on 01/14/2025 with the acute onset of multiple episodes of coffee- ground emesis and dark stools. The patient had never had this issue before, no history of GERD, no alcohol use, no pain killer use. He does take a aspirin 325 mg p.o. q.day ever since his CABG about 20 years ago. He has not seen a traffic law attorney since then, has not smoked. Denies abdominal pain, chest pain, shortness of breath, cough, fever. patient was found to have a GI bleed, elevated BUN/Creat, leukocytosis and elevated lactic. patient was treated with IV fluids, zofran, protonix and admitted for further management. Day #1 - patient today is reporting no pain, he is feeling better. he denies any chest pain, shortness of breath, abdominal pain or distress. patient was seen by GI, has EGD today at 1 pm. vitals are stable today. Review of Systems Review of Systems: All systems reviewed & are unremarkable except as noted in HPI and below (Subjective) Exam Const: General: comfortable and no acute distress Other: A&O x4 HENMT: Mouth: Yes dry mucous membranes Eyes: Pupils: Equal, round and reactive pupils present Neck: Neck: supple Resp: Effort & Inspection: normal respiratory effort Auscultation: clear to auscultation bilaterally Cardio: Rate: regular rate Rhythm: regular rhythm Heart sounds: no gallops and no murmurs GI: Inspection: non-distended Auscultation: normal bowel sounds : General: Yes bladder normal to palpation Neuro: Cranial nerves: Yes Equal, round and reactive pupils present Motor exam (neuro): 5/5 motor strength present throughout Extrem: General: no edema Objective Data Vital Signs Vital Signs: Vital Signs - 24 hr 01/14/25 14:57 01/14/25 15:13 01/14/25 15:21 Temperature 97.9 F Pulse Rate 130 H 126 H 126 H Respiratory Rate 18 16 17 Blood Pressure 145/79 H 135/94 H Pulse Oximetry 98 97 97 Oxygen Delivery Room Air 01/14/25 15:30 01/14/25 15:31 01/14/25 15:45 Temperature Pulse Rate 122 H 112 H 119 H Respiratory Rate 17 17 20 Blood Pressure 147/109 H Pulse Oximetry 98 98 95 Oxygen Delivery 01/14/25 15:46 01/14/25 15:47 01/14/25 16:27 Temperature Pulse Rate 117 H 118 H 104 H Respiratory Rate 18 21 H 16 Blood Pressure 139/103 H 109/71 Pulse Oximetry 95 96 92 Oxygen Delivery 01/14/25 16:28 01/14/25 16:29 01/14/25 16:30 Temperature Pulse Rate 108 H 108 H 106 H Respiratory Rate 23 H 19 11 L Blood Pressure 142/98 H 142/98 H Pulse Oximetry 97 80 L Oxygen Delivery 01/14/25 16:52 01/14/25 17:00 01/14/25 17:22 Temperature Pulse Rate 112 H 112 H 114 H Respiratory Rate 14 20 Blood Pressure 131/99 H 131/99 H Pulse Oximetry 95 96 Oxygen Delivery 01/14/25 17:48 01/14/25 18:48 01/14/25 20:00 Temperature 98.0 F 98.0 F Pulse Rate 110 H 113 H 112 H Respiratory Rate 20 18 18 Blood Pressure 131/86 135/102 H 127/82 Pulse Oximetry 97 99 95 Oxygen Delivery 01/14/25 20:00 01/14/25 21:11 01/14/25 22:00 Temperature Pulse Rate 111 H 112 H 79 Respiratory Rate Blood Pressure Pulse Oximetry Oxygen Delivery 01/15/25 00:00 01/15/25 00:00 01/15/25 01:58 Temperature 98.2 F Pulse Rate 83 82 82 Respiratory Rate 14 Blood Pressure 114/71 Pulse Oximetry 97 Oxygen Delivery 01/15/25 04:00 01/15/25 04:00 01/15/25 05:58 Temperature 98.3 F Pulse Rate 73 79 75 Respiratory Rate 16 Blood Pressure 107/65 Pulse Oximetry 97 Oxygen Delivery Intake/Output Intake/Output: Intake & Output 01/12/25 01/13/25 01/14/25 01/15/25 23:59 23:59 23:59 23:59 Intake Total 1755 Balance 1755 Meds/Results Medications: Active Medications Generic Name Dose Route Start Last Admin Trade Name Freq PRN Reason Stop Dose Admin Lactated Ringer's 1,000 mls @ 100 mls/hr 01/14/25 20:45 01/15/25 06:51 Lr - Lactated Ringers Iv IV CONT 100 mls/hr .Q10H PITO Administration Metoprolol Tartrate 25 mg 01/14/25 21:00 01/14/25 21:11 Metoprolol Tartrate 25 Mg Tablet PO 25 mg Q12HR PITO Administration Pantoprazole Sodium 40 mg 01/15/25 09:00 Pantoprazole Sodium Iv 40 Mg Vial IV PUSH Q12HR PITO Trimethobenzamide HCl 200 mg 01/14/25 20:48 Trimethobenzamide Hcl 200 Mg/2 Ml Vial IM Q6H PRN Nausea And Vomiting Radiology Results: ITS Impressions Chest X-Ray 01/14/25 15:37 Impression: No acute cardiopulmonary abnormality. Abdomen/Pelvis CTA 01/14/25 16:38 IMPRESSION: There is marked atherosclerotic plaque at the origin of the right internal iliac artery causing severe stenosis. The basilar fills distally. Clinically indicated a follow-up conventional angiogram can be done for further evaluation. There is no blush to suggest acute GI bleed. Colonic diverticulosis without evidence of acute diverticulitis. All CT scans at this facility are performed using low dose modulation techniques as appropriate to perform exam including the following: automated exposure control; use of iterative reconstruction technique; adjustment of the mA and/or kV according to patient size (this includes techniques or standardized protocols for targeted exams where dose is matched to indication/reason for exam). Labs Labs: Laboratory Results - last 24 hr 01/14/25 01/14/25 01/14/25 15:19 17:35 23:03 WBC 16.7 H 15.2 H RBC 3.63 L 3.39 L Hgb 11.4 L 10.6 L 9.4 L Hct 34.1 L 31.7 L 28.2 L MCV 93.9 93.5 MCH 31.4 31.3 MCHC 33.4 33.4 RDW 13.6 13.6 Plt Count 291 258 MPV 9.5 9.5 Immature Gran % (Auto) 0.8 H 0.7 H Neut % (Auto) 86.3 H 86.6 H Lymph % (Auto) 9.6 L 9.4 L [place] % (Auto) 3.1 3.2 Eos % (Auto) 0.0 0.0 Baso % (Auto) 0.2 0.1 L Lymph # (Auto) 1.61 1.43 [place] # (Auto) 0.5 0.5 Eos # (Auto) 0.0 0.0 Baso # (Auto) 0.0 0.0 Abs Immat Gran (auto) 0.13 H 0.11 H Absolute Neuts (auto) 14.4 H 13.1 H Absolute Nucleated RBC 0.000 0.000 Nucleated RBC % 0.0 0.0 PT 13.9 INR 1.1 APTT 22.7 Sodium 140 136 L Potassium 4.7 4.6 Chloride 106 104 Carbon Dioxide 14 L 20 L Anion Gap 20 H 12 BUN 59 H 57 H Creatinine 1.85 H 1.77 H Estim Creat Clear Calc 29 27 Estimated GFR 35 L 37 L Glucose 230 H 159 H Lactic Acid 6.2 H* 5.2 H* 3.8 H Calcium 9.3 8.9 Magnesium 1.6 Total Bilirubin 1.8 H AST 36 ALT 44 Alkaline Phosphatase 48 Troponin I 0.032 Total Protein 7.9 Albumin 4.7 Procalcitonin 0.1 TSH (Reflex) 1.940 Blood Type A Positive Antibody Screen Negative 01/15/25 03:54 WBC 13.0 H RBC 2.91 L Hgb 9.1 L Hct 27.6 L MCV 94.8 MCH 31.3 MCHC 33.0 RDW 13.8 Plt Count 230 MPV 9.7 Immature Gran % (Auto) 0.5 Neut % (Auto) 72.5 Lymph % (Auto) 19.1 [place] % (Auto) 7.6 Eos % (Auto) 0.1 Baso % (Auto) 0.2 Lymph # (Auto) 2.49 [place] # (Auto) 1.0 H Eos # (Auto) 0.0 Baso # (Auto) 0.0 Abs Immat Gran (auto) 0.06 H Absolute Neuts (auto) 9.5 H Absolute Nucleated RBC 0.000 Nucleated RBC % 0.0 PT INR APTT Sodium 137 Potassium 4.5 Chloride 104 Carbon Dioxide 23 Anion Gap 10 BUN 53 H Creatinine 1.66 H Estim Creat Clear Calc 32 Estimated GFR 40 L Glucose 125 H Lactic Acid Calcium 8.5 Magnesium 1.6 Total Bilirubin 1.4 H AST 37 ALT 24 Alkaline Phosphatase 37 L Troponin I Total Protein 6.1 L Albumin 3.8 Procalcitonin TSH (Reflex) Blood Type Antibody Screen Quality VTE Prophylaxis VTE prophylaxis: mechanical ordered Hospitalist MIPS Advance Care Plan I have confirmed that the patient's Advanced Care Plan is present, code status is documented, or surrogate decision maker is listed in patient medical record.: Yes Medication Reconciliation I have utilized all available resources to obtain, update and review the patients current medications (includes all prescriptions, OTC, herbals, cannabis, and nutritional supplements).: Yes The patient is not eligible for med reconciliation; the patient is in a emergent medical situation where delaying treatment would jeopardize the patients health.: Yes
[2025-01-15] MEDS: PANTOPRAZOLE SODIUM IV 40 MG VIAL IV PUSH (08:47)
[2025-01-15] MEDS: METOPROLOL TARTRATE 25 MG TABLET PO ×2 (08:47→20:47)
--- NOTE | 2025-01-15 08:52 | WPDGICN ---
Assessment and Plan Assessment and plan (1) Acute upper GI bleed: Code(s): K92.2 - Gastrointestinal hemorrhage, unspecified Status: Acute Assessment and Plan: The patient has evidence of upper gastrointestinal bleeding, for which the main differential diagnosis it is peptic ulcer disease induced by aspirin versus severe erosive gastritis. The patient is currently hemodynamically stable and will perform an EGD today. In the meantime will keep the patient NPO and prescribe pantoprazole 40 mg IV b.i.d.. GI Consult Note Consult date/time: 01/15/25 08:52 Reason for consult: Upper GI bleeding HPI: Hebert Zheng is a 79-year-old male with a history of coronary artery disease, status post CABG 30 years ago. He presented two days ago after several episodes of coffee-ground emesis followed by multiple episodes of melena. He denied presyncopal symptoms. His only related home medication is aspirin 81 once daily. On arrival, he had atrial fibrillation with rapid ventricular response which converted to sinus rhythm following a diltiazem drip. Admission laboratory data included Hemoglobin 10.6, INR 1.1, BUN 57, creatinine 1.77, and lactic acid 5.2. This morning, the patient feels well, but his Hemoglobin has decreased to 9.1. Other current labs show improvement, with BUN 53, creatinine 1.66, and lactic acid 3.8. Review of Systems Review of Systems: All systems reviewed & are unremarkable except as noted in HPI and below PMFSH Social History Social History Smoking status: Former smoker Alcohol intake: never Substance use: never Lack of Transportation: No Lack of Food: Never True Current Housing: I Have Housing Concerned About Future Housing: No Difficulty Paying Gas/Electric Bills: No Difficulty Paying for Meds: No Currently Unemployed: No Education: High School Diploma/GED Difficulty w/ Childcare or Family Care: No Spiritual care concerns: No Meds Home Medications and Allergies Home Medications ?Medication ?Instructions ?Recorded ?Confirmed ?Type allopurinol 100 mg tablet 100 mg PO DAILY 01/14/25 01/14/25 History amlodipine 5 mg tablet 5 mg PO DAILY HTN 01/14/25 01/14/25 History aspirin 325 mg capsule 325 mg PO DAILY 01/14/25 01/14/25 History cholecalciferol (vitamin D3) 25 25 mcg PO DAILY 01/14/25 01/14/25 History mcg (1,000 unit) capsule finasteride 5 mg tablet 5 mg PO DAILY 01/14/25 01/14/25 History lisinopril 40 mg tablet 40 mg PO DAILY 01/14/25 01/14/25 History metformin 1,000 mg tablet 500 mg PO BID 01/14/25 01/14/25 History metoprolol tartrate 50 mg tablet 25 mg PO BID 01/14/25 01/14/25 History simvastatin 80 mg tablet 40 mg PO HS 01/14/25 01/14/25 History Allergies Allergy/AdvReac Type Severity Reaction Status Date / Time No Known Allergies Allergy Verified 01/14/25 18:52 Vital Signs Vital Signs - 24 hr 01/14/25 14:57 01/14/25 15:13 01/14/25 15:21 Temperature 97.9 F Pulse Rate 130 H 126 H 126 H Respiratory Rate 18 16 17 Blood Pressure 145/79 H 135/94 H Pulse Oximetry 98 97 97 Oxygen Delivery Room Air 01/14/25 15:30 01/14/25 15:31 01/14/25 15:45 Temperature Pulse Rate 122 H 112 H 119 H Respiratory Rate 17 17 20 Blood Pressure 147/109 H Pulse Oximetry 98 98 95 Oxygen Delivery 01/14/25 15:46 01/14/25 15:47 01/14/25 16:27 Temperature Pulse Rate 117 H 118 H 104 H Respiratory Rate 18 21 H 16 Blood Pressure 139/103 H 109/71 Pulse Oximetry 95 96 92 Oxygen Delivery 01/14/25 16:28 01/14/25 16:29 01/14/25 16:30 Temperature Pulse Rate 108 H 108 H 106 H Respiratory Rate 23 H 19 11 L Blood Pressure 142/98 H 142/98 H Pulse Oximetry 97 80 L Oxygen Delivery 01/14/25 16:52 01/14/25 17:00 01/14/25 17:22 Temperature Pulse Rate 112 H 112 H 114 H Respiratory Rate 14 20 Blood Pressure 131/99 H 131/99 H Pulse Oximetry 95 96 Oxygen Delivery 01/14/25 17:48 01/14/25 18:48 01/14/25 20:00 Temperature 98.0 F 98.0 F Pulse Rate 110 H 113 H 112 H Respiratory Rate 20 18 18 Blood Pressure 131/86 135/102 H 127/82 Pulse Oximetry 97 99 95 Oxygen Delivery 01/14/25 20:00 01/14/25 21:11 01/14/25 22:00 Temperature Pulse Rate 111 H 112 H 79 Respiratory Rate Blood Pressure Pulse Oximetry Oxygen Delivery 01/15/25 00:00 01/15/25 00:00 01/15/25 01:58 Temperature 98.2 F Pulse Rate 83 82 82 Respiratory Rate 14 Blood Pressure 114/71 Pulse Oximetry 97 Oxygen Delivery 01/15/25 04:00 01/15/25 04:00 01/15/25 05:58 Temperature 98.3 F Pulse Rate 73 79 75 Respiratory Rate 16 Blood Pressure 107/65 Pulse Oximetry 97 Oxygen Delivery 01/15/25 08:00 01/15/25 08:47 Temperature 98.3 F Pulse Rate 76 79 Respiratory Rate 16 Blood Pressure 113/69 Pulse Oximetry 98 Oxygen Delivery Exam Const: General: cooperative and healthy appearing Resp: Effort & Inspection: normal respiratory effort and able to speak in complete sentences Auscultation: clear to auscultation bilaterally Cardio: Rate: regular rate Rhythm: regular rhythm GI: Inspection: normal to inspection GI Palp: No No hepatosplenomegaly present Auscultation: normal bowel sounds Rectal Exam: deferred Skin: General skin exam: normal color Psych: Appearance: grossly normal Mental Status: mental status grossly normal Results Labs 01/15/25 03:54 01/15/25 03:54 Labs: Short CBC 01/14/25 01/14/25 01/14/25 Range/Units 15:19 17:35 23:03 WBC 16.7 H 15.2 H (4.5-10.0) K/mm3 Hgb 11.4 L 10.6 L 9.4 L (14.0-18.0) g/dL Hct 34.1 L 31.7 L 28.2 L (42.0-52.0) % Plt Count 291 258 (150-375) k/mm3 01/15/25 Range/Units 03:54 WBC 13.0 H (4.5-10.0) K/mm3 Hgb 9.1 L (14.0-18.0) g/dL Hct 27.6 L (42.0-52.0) % Plt Count 230 (150-375) k/mm3 BMP 01/14/25 01/14/25 01/15/25 15:19 23:03 03:54 Sodium 140 136 L 137 Potassium 4.7 4.6 4.5 Chloride 106 104 104 Carbon Dioxide 14 L 20 L 23 BUN 59 H 57 H 53 H Creatinine 1.85 H 1.77 H 1.66 H Glucose 230 H 159 H 125 H Calcium 9.3 8.9 8.5 Cardiac Enzymes 01/14/25 Range/Units 15:19 Troponin I 0.032 (0.000-0.034) ng/mL Liver Function 01/14/25 01/15/25 Range/Units 15:19 03:54 Total Bilirubin 1.8 H 1.4 H (0.2-1.3) mg/dL AST 36 37 (17-59) U/L ALT 44 24 (6-50) U/L Alkaline Phosphatase 48 37 L (38-126) U/L Albumin 4.7 3.8 (3.5-5.1) g/dL
--- NOTE | 2025-01-15 09:01 | PM.CNCAR ---
Assessment and Plan Assessment and plan (1) GI bleed: Code(s): K92.2 - Gastrointestinal hemorrhage, unspecified Status: Acute Assessment and Plan: 79-year-old male with CAD, history of remote CABGx5 as per patient in 1995 at [facility] (Unknown grafts); hypertension, diabetes mellitus, remote history of tobacco abuse. Patient presented with 2 day history of hematemesis and melena. CBC shows anemia. Patient states that he takes full-dose aspirin at home. Denies any other NSAIDs. -hold antiplatelets for now -gastroenterology evaluation; patient is scheduled for EGD today. -monitor H&H, attempt to keep hemoglobin more than 7 grams/deciliter. Transfuse as necessary. -ER notes indicate that patient was noted to have tachycardia in the ER. As per ER physician note, patient was in atrial fibrillation. Patient reportedly received IV diltiazem. Telemetry rhythm strips are not available for review. However, on the floor, patient has been in sinus rhythm on telemetry. He denies prior history of any known arrhythmias. At this time, continue to monitor on telemetry. I spoke with patient about need for cardiology follow-up. He states that he follows up at [facility] and would like to think about following up locally for his cardiovascular care. It may be reasonable to place a 30 day event monitor as an outpatient to check for any recurrent atrial fibrillation or flutter. At this time, he is not a candidate for anticoagulation anyway due to GI bleed. He may continue low-dose metoprolol tartrate. -management of other medical problems as per primary team. Will follow on p.r.n. basis. Patient encouraged to follow up as an outpatient. History of Present Illness History of Present Illness Consult date/time: 01/15/25 09:01 Requesting physician: Flaquito Vera MD Reason For Visit: afib with rvr,gi bleed Narrative: DATE OF CONSULT: 01/15/2025 REASON FOR CONSULT: AFib with RVR REQUESTING PHYSICIAN: Chuy CHIEF COMPLAINT: Bloody vomiting and blood in the stool HPI: 79-year-old male with CAD, history of remote CABGx5 as per patient in 1995 at [facility] (Unknown grafts); hypertension, diabetes mellitus, remote history of tobacco abuse. Patient states that he follows up at [facility] for his medical care. He states that he has not seen stock mixer for many years. He presented to [facility] Emergency Room on 01/14/2025 with complaints of 2 day history of hematemesis and black stool. Denied abdominal pain. No chest pain. No baseline dyspnea on exertion. No palpitations, dizziness or syncope. Patient states that he takes full-dose aspirin at home. Denies taking other NSAIDs. EKG at presentation on my personal interpretation showed sinus tachycardia, heart rate 122 beats per minute, RBBB, LAFB. Based on the ER notes, patient was found to be tachycardic to the 130s on the monitor and as per ER physician, appeared to be in AFib. Patient received IV diltiazem. On telemetry, patient has been in sinus rhythm. Patient denies prior known history of any cardiac arrhythmias. CBC showed anemia, current hemoglobin 9.1 grams/deciliters. Troponin x1 negative. TSH within normal limits. CT abdomen and elevation reported marked atherosclerotic plaque at the origin of the right internal iliac artery causing severe stenosis; no blush to suggest acute GI bleed; Colonic diverticulosis without evidence of acute diverticulitis. Review of Systems Review of Systems: General: Negative for fever, chills, fatigue Psychological: Negative for anxiety, depression Ophthalmic: negative for loss of vision ENT: Negative for epistaxis, headaches Allergy and immunology: Negative for hives, nasal congestion Hematologic and lymphatic: Negative for overt bleeding problems Endocrine: Negative for hot flashes, palpitations Respiratory: Negative for cough, hemoptysis Cardiovascular: Negative for chest pain Gastrointestinal: Positive for hematemesis, hematochezia Musculoskeletal: Negative for myalgia, joint pains Neurological: Negative for weakness Dermatological: Negative for rash, skin discoloration PMFSH Past Medical History Medical History (Updated 01/15/25 @ 09:25 by Jose Remy MD) Hypertension associated with type 2 diabetes mellitus CAD (coronary artery disease) Surgical History Surgical History (Updated 01/15/25 @ 09:22 by Jose Remy MD) S/P CABG (coronary artery bypass graft) Family History Family History (Updated 01/15/25 @ 09:22 by Jose Remy MD) Father Acute myocardial infarction Social History Social History Smoking status: Former smoker Alcohol intake: never Substance use: never Lack of Transportation: No Lack of Food: Never True Current Housing: I Have Housing Concerned About Future Housing: No Difficulty Paying Gas/Electric Bills: No Difficulty Paying for Meds: No Currently Unemployed: No Education: High School Diploma/GED Difficulty w/ Childcare or Family Care: No Spiritual care concerns: No Meds Home Medications and Allergies Home Medications ?Medication ?Instructions ?Recorded ?Confirmed ?Type allopurinol 100 mg tablet 100 mg PO DAILY 01/14/25 01/14/25 History amlodipine 5 mg tablet 5 mg PO DAILY HTN 01/14/25 01/14/25 History aspirin 325 mg capsule 325 mg PO DAILY 01/14/25 01/14/25 History cholecalciferol (vitamin D3) 25 25 mcg PO DAILY 01/14/25 01/14/25 History mcg (1,000 unit) capsule finasteride 5 mg tablet 5 mg PO DAILY 01/14/25 01/14/25 History lisinopril 40 mg tablet 40 mg PO DAILY 01/14/25 01/14/25 History metformin 1,000 mg tablet 500 mg PO BID 01/14/25 01/14/25 History metoprolol tartrate 50 mg tablet 25 mg PO BID 01/14/25 01/14/25 History simvastatin 80 mg tablet 40 mg PO HS 01/14/25 01/14/25 History Allergies Allergy/AdvReac Type Severity Reaction Status Date / Time No Known Allergies Allergy Verified 01/14/25 18:52 Vital Signs Vital Signs - 24 hr 01/14/25 14:57 01/14/25 15:13 01/14/25 15:21 Temperature 36.6 C Pulse Rate 130 H 126 H 126 H Respiratory Rate 18 16 17 Blood Pressure 145/79 H 135/94 H Pulse Oximetry 98 97 97 Oxygen Delivery Room Air 01/14/25 15:30 01/14/25 15:31 01/14/25 15:45 Temperature Pulse Rate 122 H 112 H 119 H Respiratory Rate 17 17 20 Blood Pressure 147/109 H Pulse Oximetry 98 98 95 Oxygen Delivery 01/14/25 15:46 01/14/25 15:47 01/14/25 16:27 Temperature Pulse Rate 117 H 118 H 104 H Respiratory Rate 18 21 H 16 Blood Pressure 139/103 H 109/71 Pulse Oximetry 95 96 92 Oxygen Delivery 01/14/25 16:28 01/14/25 16:29 01/14/25 16:30 Temperature Pulse Rate 108 H 108 H 106 H Respiratory Rate 23 H 19 11 L Blood Pressure 142/98 H 142/98 H Pulse Oximetry 97 80 L Oxygen Delivery 01/14/25 16:52 01/14/25 17:00 01/14/25 17:22 Temperature Pulse Rate 112 H 112 H 114 H Respiratory Rate 14 20 Blood Pressure 131/99 H 131/99 H Pulse Oximetry 95 96 Oxygen Delivery 01/14/25 17:48 01/14/25 18:48 01/14/25 20:00 Temperature 36.7 C 36.7 C Pulse Rate 110 H 113 H 112 H Respiratory Rate 20 18 18 Blood Pressure 131/86 135/102 H 127/82 Pulse Oximetry 97 99 95 Oxygen Delivery 01/14/25 20:00 01/14/25 21:11 01/14/25 22:00 Temperature Pulse Rate 111 H 112 H 79 Respiratory Rate Blood Pressure Pulse Oximetry Oxygen Delivery 01/15/25 00:00 01/15/25 00:00 01/15/25 01:58 Temperature 36.8 C Pulse Rate 83 82 82 Respiratory Rate 14 Blood Pressure 114/71 Pulse Oximetry 97 Oxygen Delivery 01/15/25 04:00 01/15/25 04:00 01/15/25 05:58 Temperature 36.8 C Pulse Rate 73 79 75 Respiratory Rate 16 Blood Pressure 107/65 Pulse Oximetry 97 Oxygen Delivery 01/15/25 08:00 01/15/25 08:47 Temperature 36.8 C Pulse Rate 76 79 Respiratory Rate 16 Blood Pressure 113/69 Pulse Oximetry 98 Oxygen Delivery Exam Narrative: PHYSICAL EXAMINATION: GENERAL: Alert, oriented, no acute distress MENTAL STATUS: affect appropriate to mood EYES: Extraocular movements intact, pallor EARS: External ears appear normal, hearing grossly normal NOSE: Normal and patent, no discharge MOUTH: Mucous membranes moist, edentulous NECK: Supple, no JVD CHEST: Diffuse rhonchi HEART: Normal rate, regular rhythm, normal S1 and S2 ABDOMEN: Soft, nontender NEUROLOGICAL: Alert, oriented, normal speech, no gross motor deficits MUSCULOSKELETAL: No major deformity, no amputation EXTREMITIES: No pedal edema, no clubbing, no cyanosis SKIN: no rash on the exposed area, no cyanosis PSYCHIATRIC: Normal mood, appropriate affect Results Labs and Meds 01/15/25 03:54 01/15/25 03:54 Lab results: Cardiac Enzymes 01/14/25 01/15/25 Range/Units 15:19 03:54 AST 36 37 (17-59) U/L Troponin I 0.032 (0.000-0.034) ng/mL Coagulation 01/14/25 Range/Units 15:19 PT 13.9 (11.1-14.7) Seconds APTT 22.7 (22.3-36.8) Seconds CBC 01/14/25 01/14/25 01/14/25 Range/Units 15:19 17:35 23:03 WBC 16.7 H 15.2 H (4.5-10.0) K/mm3 RBC 3.63 L 3.39 L (4.6-6.20) M/mm3 Hgb 11.4 L 10.6 L 9.4 L (14.0-18.0) g/dL Hct 34.1 L 31.7 L 28.2 L (42.0-52.0) % Plt Count 291 258 (150-375) k/mm3 Lymph # (Auto) 1.61 1.43 (0.9-3.2) K/mm3 [place] # (Auto) 0.5 0.5 (0.1-0.6) K/mm3 Eos # (Auto) 0.0 0.0 (0-0.3) K/mm3 Baso # (Auto) 0.0 0.0 (0.0-0.1) K/mm3 01/15/25 Range/Units 03:54 WBC 13.0 H (4.5-10.0) K/mm3 RBC 2.91 L (4.6-6.20) M/mm3 Hgb 9.1 L (14.0-18.0) g/dL Hct 27.6 L (42.0-52.0) % Plt Count 230 (150-375) k/mm3 Lymph # (Auto) 2.49 (0.9-3.2) K/mm3 [place] # (Auto) 1.0 H (0.1-0.6) K/mm3 Eos # (Auto) 0.0 (0-0.3) K/mm3 Baso # (Auto) 0.0 (0.0-0.1) K/mm3 Comprehensive Metabolic Panel 01/14/25 01/14/25 01/15/25 Range/Units 15:19 23:03 03:54 Sodium 140 136 L 137 (137-145) mmol/L Potassium 4.7 4.6 4.5 (3.4-5.0) mmol/L Chloride 106 104 104 (98-107) mmol/L Carbon Dioxide 14 L 20 L 23 (22-30) mmol/L BUN 59 H 57 H 53 H (9-20) mg/dL Creatinine 1.85 H 1.77 H 1.66 H (0.7-1.3) mg/dL Glucose 230 H 159 H 125 H (65-110) mg/dL Calcium 9.3 8.9 8.5 (8.4-10.2) mg/dL AST 36 37 (17-59) U/L ALT 44 24 (6-50) U/L Alkaline Phosphatase 48 37 L (38-126) U/L Total Protein 7.9 6.1 L (6.3-8.2) g/dL Albumin 4.7 3.8 (3.5-5.1) g/dL Intake and Output 01/14/25 01/15/25 01/15/25 23:59 07:59 15:59 Intake Total 1755 Balance 1755 Intake: IV 965 Lactated Ringers 1,000 ml @ 100 965 mls/hr IV CONT .Q10H [facility] Rx#: [id number] Oral 790 Other: # Unmeasured Voids 500 Patient Weight 01/15/25 23:59 Weight 82.2 kg
[2025-01-15] MEDS: LACTATED RINGERS 1,000 ML 150 ML IV CONT (13:35)
[2025-01-15] MEDS: SIMETHICONE ORAL SUSPENSION 20 MG/0.3 ML 30 ML BOTTLE 1.8 ML PO (13:40)
--- NOTE | 2025-01-15 13:55 | WPDANESEPPF ---
Anes - Initial Pre Proc Eval Procedure: Operation Date: 01/15/25 14:15 Proposed Procedures p Esophagogastroduodenoscopy - Jesse Jackson MD Date/Time: 01/15/25 13:55 Surgeon: Helene Lopez MD Pre Op Diagnosis: afib with rvr,gi bleed Patient Data Age: 79 Gender: M Height: 1.65 m Weight: 82.2 kg Last Vital Signs Temp 36.8 C 01/15/25 13:32 Pulse 64 01/15/25 13:32 Resp 20 01/15/25 13:32 BP 108/65 01/15/25 13:32 Pulse Ox 96 01/15/25 13:32 O2 Del Method Room Air 01/15/25 13:32 Allergies Allergy/AdvReac Type Severity Reaction Status Date / Time No Known Allergies Allergy Verified 01/15/25 13:28 Home Medications ?Medication ?Instructions ?Recorded ?Confirmed ?Type allopurinol 100 mg tablet 100 mg PO DAILY 01/14/25 01/14/25 History amlodipine 5 mg tablet 5 mg PO DAILY HTN 01/14/25 01/14/25 History aspirin 325 mg capsule 325 mg PO DAILY 01/14/25 01/14/25 History cholecalciferol (vitamin D3) 25 25 mcg PO DAILY 01/14/25 01/14/25 History mcg (1,000 unit) capsule finasteride 5 mg tablet 5 mg PO DAILY 01/14/25 01/14/25 History lisinopril 40 mg tablet 40 mg PO DAILY 01/14/25 01/14/25 History metformin 1,000 mg tablet 500 mg PO BID 01/14/25 01/14/25 History metoprolol tartrate 50 mg tablet 25 mg PO BID 01/14/25 01/14/25 History simvastatin 80 mg tablet 40 mg PO HS 01/14/25 01/14/25 History Laboratory Tests 01/14/25 01/14/25 01/14/25 15:19 17:35 23:03 WBC 16.7 H K/mm3 15.2 H K/mm3 (4.5-10.0) (4.5-10.0) RBC 3.63 L M/mm3 3.39 L M/mm3 (4.6-6.20) (4.6-6.20) Hgb 11.4 L g/dL 10.6 L g/dL 9.4 L g/dL (14.0-18.0) (14.0-18.0) (14.0-18.0) Hct 34.1 L % 31.7 L % 28.2 L % (42.0-52.0) (42.0-52.0) (42.0-52.0) MCV 93.9 fl 93.5 fl (80-100) (80-100) MCH 31.4 pg 31.3 pg (26-34) (26-34) MCHC 33.4 g/dl 33.4 g/dl (32-36) (32-36) RDW 13.6 % 13.6 % (11.5-14.5) (11.5-14.5) Plt Count 291 k/mm3 258 k/mm3 (150-375) (150-375) MPV 9.5 fl 9.5 fl (7.4-10.4) (7.4-10.4) Immature Gran % (Auto) 0.8 H % 0.7 H % (0-0.5) (0-0.5) Neut % (Auto) 86.3 H % 86.6 H % (45.5-73.1) (45.5-73.1) Lymph % (Auto) 9.6 L % 9.4 L % (18.3-44.2) (18.3-44.2) [place] % (Auto) 3.1 % 3.2 % (2.6-8.5) (2.6-8.5) Eos % (Auto) 0.0 % 0.0 % (0-4.4) (0-4.4) Baso % (Auto) 0.2 % 0.1 L % (0.2-1.2) (0.2-1.2) Lymph # (Auto) 1.61 K/mm3 1.43 K/mm3 (0.9-3.2) (0.9-3.2) [place] # (Auto) 0.5 K/mm3 0.5 K/mm3 (0.1-0.6) (0.1-0.6) Eos # (Auto) 0.0 K/mm3 0.0 K/mm3 (0-0.3) (0-0.3) Baso # (Auto) 0.0 K/mm3 0.0 K/mm3 (0.0-0.1) (0.0-0.1) Abs Immat Gran (auto) 0.13 H K/mm3 0.11 H K/mm3 (0.00-0.031) (0.00-0.031) Absolute Neuts (auto) 14.4 H K/mm3 13.1 H K/mm3 (1.3-6.7) (1.3-6.7) Absolute Nucleated RBC 0.000 K/mm3 0.000 K/mm3 (0.0-0.012) (0.0-0.012) Nucleated RBC % 0.0 % 0.0 % (0.0-0.2) (0.0-0.2) PT 13.9 Seconds (11.1-14.7) INR 1.1 APTT 22.7 Seconds (22.3-36.8) Sodium 140 mmol/L 136 L mmol/L (137-145) (137-145) Potassium 4.7 mmol/L 4.6 mmol/L (3.4-5.0) (3.4-5.0) Chloride 106 mmol/L 104 mmol/L (98-107) (98-107) Carbon Dioxide 14 L mmol/L 20 L mmol/L (22-30) (22-30) Anion Gap 20 H mmol/L 12 mmol/L (4-12) (4-12) BUN 59 H mg/dL 57 H mg/dL (9-20) (9-20) Creatinine 1.85 H mg/dL 1.77 H mg/dL (0.7-1.3) (0.7-1.3) Estim Creat Clear Calc 29 ml/min 27 ml/min Estimated GFR 35 L 37 L (59 - ) (59 - ) Glucose 230 H mg/dL 159 H mg/dL (65-110) (65-110) Lactic Acid 6.2 H* mmol/L 5.2 H* mmol/L 3.8 H mmol/L (0.7-2.0) (0.7-2.0) (0.7-2.0) Calcium 9.3 mg/dL 8.9 mg/dL (8.4-10.2) (8.4-10.2) Magnesium 1.6 mg/dL (1.6-2.3) Total Bilirubin 1.8 H mg/dL (0.2-1.3) AST 36 U/L (17-59) ALT 44 U/L (6-50) Alkaline Phosphatase 48 U/L (38-126) Troponin I 0.032 ng/mL (0.000-0.034) Total Protein 7.9 g/dL (6.3-8.2) Albumin 4.7 g/dL (3.5-5.1) Procalcitonin 0.1 ng/mL TSH (Reflex) 1.940 uIU/mL (0.465-4.68) Blood Type A Positive Antibody Screen Negative 01/15/25 03:54 WBC 13.0 H K/mm3 (4.5-10.0) RBC 2.91 L M/mm3 (4.6-6.20) Hgb 9.1 L g/dL (14.0-18.0) Hct 27.6 L % (42.0-52.0) MCV 94.8 fl (80-100) MCH 31.3 pg (26-34) MCHC 33.0 g/dl (32-36) RDW 13.8 % (11.5-14.5) Plt Count 230 k/mm3 (150-375) MPV 9.7 fl (7.4-10.4) Immature Gran % (Auto) 0.5 % (0-0.5) Neut % (Auto) 72.5 % (45.5-73.1) Lymph % (Auto) 19.1 % (18.3-44.2) [place] % (Auto) 7.6 % (2.6-8.5) Eos % (Auto) 0.1 % (0-4.4) Baso % (Auto) 0.2 % (0.2-1.2) Lymph # (Auto) 2.49 K/mm3 (0.9-3.2) [place] # (Auto) 1.0 H K/mm3 (0.1-0.6) Eos # (Auto) 0.0 K/mm3 (0-0.3) Baso # (Auto) 0.0 K/mm3 (0.0-0.1) Abs Immat Gran (auto) 0.06 H K/mm3 (0.00-0.031) Absolute Neuts (auto) 9.5 H K/mm3 (1.3-6.7) Absolute Nucleated RBC 0.000 K/mm3 (0.0-0.012) Nucleated RBC % 0.0 % (0.0-0.2) PT INR APTT Sodium 137 mmol/L (137-145) Potassium 4.5 mmol/L (3.4-5.0) Chloride 104 mmol/L (98-107) Carbon Dioxide 23 mmol/L (22-30) Anion Gap 10 mmol/L (4-12) BUN 53 H mg/dL (9-20) Creatinine 1.66 H mg/dL (0.7-1.3) Estim Creat Clear Calc 32 ml/min Estimated GFR 40 L (59 - ) Glucose 125 H mg/dL (65-110) Lactic Acid Calcium 8.5 mg/dL (8.4-10.2) Magnesium 1.6 mg/dL (1.6-2.3) Total Bilirubin 1.4 H mg/dL (0.2-1.3) AST 37 U/L (17-59) ALT 24 U/L (6-50) Alkaline Phosphatase 37 L U/L (38-126) Troponin I Total Protein 6.1 L g/dL (6.3-8.2) Albumin 3.8 g/dL (3.5-5.1) Procalcitonin TSH (Reflex) Blood Type Antibody Screen Patient hx anesthesia problems: none Family hx anesthesia problems: none Results Review: All pre-operative results and documents have been reviewed as part of the pre-operative evaluation. [facility] Past Medical History Medical History Hypertension associated with type 2 diabetes mellitus CAD (coronary artery disease) Surgical History Surgical History S/P CABG (coronary artery bypass graft) Family History Family History Father Acute myocardial infarction Social History Social History Smoking status: Former smoker Alcohol intake: never Substance use: never Lack of Transportation: No Lack of Food: Never True Current Housing: I Have Housing Concerned About Future Housing: No Difficulty Paying Gas/Electric Bills: No Difficulty Paying for Meds: No Currently Unemployed: No Education: High School Diploma/GED Difficulty w/ Childcare or Family Care: No Spiritual care concerns: No Anes - Eval Final PreProcedure Day of Procedure 01/15/25 13:55 Patient weight: obese Heart: regular rate and rhythm Lungs: clear to auscultation Airway: Mallampati scale class II Neurological: alert and oriented Last oral intake: >/= 8 hours ASA classification: III Emergent: no Anesthetic plan: proceed Anesthesia type and monitoring: general GIVS and standard monitoring Results Review: All pre-operative results and documents have been reviewed as part of the pre-operative evaluation. Informed Consent: The patient's anesthetic plan and its attendant risks and benefits were discussed with the patient/family/POA. Questions were solicited and answers provided to the satisfaction of the patient/family/POA.
--- NOTE | 2025-01-15 14:39 | S_PTH ---
PATIENT: Hebert Zheng LOC: [id number] U#:[id number] AGE/SX: 79/M ROOM: 247 RE01/14/[address]: Flores Owen APRN : 1945 BED: 01 DIS: 01/17/2025 SPEC #: [id number] RECD: 01/16/25 10:44 STATUS: SUNITHA SALMERON #: [id number] LULU: 01/15/25 14:[address]: Jesse Jackson DEPT: [facility] Surgical RECD BY: Jayshree Mitchell ENTERED: 01/16/25 10:45 SP TYPE: Surgical OTHR DR: MD Helene Person MD [facility] [facility]SHRADD[facility] Tissues: A - Gastric Biopsy B - Gastric Biopsy C - Esophageal Biopsy Procedures: Hematoxylin and Eosin Stain Gross and Microscopic Level 4 H.Pylori
--- NOTE | 2025-01-15 14:50 | P.PNGI_ITS ---
Progress Note: A&P Assessment and Plan (1) Erosive gastritis: Code(s): K29.60 - Other gastritis without bleeding Status: Acute Assessment and Plan: See EGD report. No severe bleeding, no peptic ulcer. Erosive gastritis associated with aspirin intake explains coffee-ground emesis and benign clinical course. The patient can be switched to pantoprazole 40 mg orally once a day, and should be kept on this medication permanently for prophylaxis, since he is in permanent need to take aspirin due to his coronary artery disease. In addition, the patient has evidence of Ramsey's esophagus although there were no signs of malignancy such as nodules or depressed areas. We should follow him up in GI clinic in 1 month and the patient can be safely discharged tonight from our standpoint. 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: Code(s): K22.70 - Ramsey's esophagus without dysplasia Status: Acute (3) Hiatal hernia: Code(s): K44.9 - Diaphragmatic hernia without obstruction or gangrene Status: Acute Subjective Date/time seen: 01/15/25 14:50 Objective Data Vital Signs Vital Signs: Vital Signs - 24 hr 01/14/25 14:57 01/14/25 15:13 01/14/25 15:21 Temperature 97.9 F Pulse Rate 130 H 126 H 126 H Respiratory Rate 18 16 17 Blood Pressure 145/79 H 135/94 H Pulse Oximetry 98 97 97 Oxygen Delivery Room Air Oxygen Flow Rate 01/14/25 15:30 01/14/25 15:31 01/14/25 15:45 Temperature Pulse Rate 122 H 112 H 119 H Respiratory Rate 17 17 20 Blood Pressure 147/109 H Pulse Oximetry 98 98 95 Oxygen Delivery Oxygen Flow Rate 01/14/25 15:46 01/14/25 15:47 01/14/25 16:27 Temperature Pulse Rate 117 H 118 H 104 H Respiratory Rate 18 21 H 16 Blood Pressure 139/103 H 109/71 Pulse Oximetry 95 96 92 Oxygen Delivery Oxygen Flow Rate 01/14/25 16:28 01/14/25 16:29 01/14/25 16:30 Temperature Pulse Rate 108 H 108 H 106 H Respiratory Rate 23 H 19 11 L Blood Pressure 142/98 H 142/98 H Pulse Oximetry 97 80 L Oxygen Delivery Oxygen Flow Rate 01/14/25 16:52 01/14/25 17:00 01/14/25 17:22 Temperature Pulse Rate 112 H 112 H 114 H Respiratory Rate 14 20 Blood Pressure 131/99 H 131/99 H Pulse Oximetry 95 96 Oxygen Delivery Oxygen Flow Rate 01/14/25 17:48 01/14/25 18:48 01/14/25 20:00 Temperature 98.0 F 98.0 F Pulse Rate 110 H 113 H 112 H Respiratory Rate 20 18 18 Blood Pressure 131/86 135/102 H 127/82 Pulse Oximetry 97 99 95 Oxygen Delivery Oxygen Flow Rate 01/14/25 20:00 01/14/25 21:11 01/14/25 22:00 Temperature Pulse Rate 111 H 112 H 79 Respiratory Rate Blood Pressure Pulse Oximetry Oxygen Delivery Oxygen Flow Rate 01/15/25 00:00 01/15/25 00:00 01/15/25 01:58 Temperature 98.2 F Pulse Rate 83 82 82 Respiratory Rate 14 Blood Pressure 114/71 Pulse Oximetry 97 Oxygen Delivery Oxygen Flow Rate 01/15/25 04:00 01/15/25 04:00 01/15/25 05:58 Temperature 98.3 F Pulse Rate 73 79 75 Respiratory Rate 16 Blood Pressure 107/65 Pulse Oximetry 97 Oxygen Delivery Oxygen Flow Rate 01/15/25 08:00 01/15/25 08:00 01/15/25 08:47 Temperature 98.3 F Pulse Rate 76 77 79 Respiratory Rate 16 Blood Pressure 113/69 Pulse Oximetry 98 Oxygen Delivery Oxygen Flow Rate 01/15/25 10:00 01/15/25 12:00 01/15/25 12:00 Temperature 98.2 F Pulse Rate 63 64 62 Respiratory Rate 16 Blood Pressure 104/66 Pulse Oximetry 96 Oxygen Delivery Oxygen Flow Rate 01/15/25 13:32 01/15/25 13:38 Temperature 98.3 F 98.3 F Pulse Rate 64 67 Respiratory Rate 20 20 Blood Pressure 108/65 115/70 Pulse Oximetry 96 100 Oxygen Delivery Room Air Non-Rebreather Mask Oxygen Flow Rate 4 Intake/Output Intake/Output: Intake & Output 01/12/25 01/13/25 01/14/25 01/15/25 23:59 23:59 23:59 23:59 Intake Total 1755 Balance 1755 Meds/Results Medications: Active Medications Generic Name Dose Route Start Last Admin Trade Name Freq PRN Reason Stop Dose Admin Lactated Ringer's 1,000 mls @ 100 mls/hr 01/14/25 20:45 01/15/25 06:51 Lr - Lactated Ringers Iv IV CONT 100 mls/hr .Q10H PITO Administration Lactated Ringer's 1,000 mls @ 150 mls/hr 01/15/25 13:30 01/15/25 14:36 Lr - Lactated Ringers Iv IV CONT 150 mls/hr .Q6H40M PITO Infusion Metoprolol Tartrate 25 mg 01/14/25 21:00 01/15/25 08:47 Metoprolol Tartrate 25 Mg Tablet PO 25 mg Q12HR PITO Administration Pantoprazole Sodium 40 mg 01/15/25 09:00 01/15/25 08:47 Pantoprazole Sodium Iv 40 Mg Vial IV PUSH 40 mg Q12HR PITO Administration Trimethobenzamide HCl 200 mg 01/14/25 20:48 Trimethobenzamide Hcl 200 Mg/2 Ml Vial IM Q6H PRN Nausea And Vomiting Radiology Results: ITS Impressions Chest X-Ray 01/14/25 15:37 Impression: No acute cardiopulmonary abnormality. Abdomen/Pelvis CTA 01/14/25 16:38 IMPRESSION: There is marked atherosclerotic plaque at the origin of the right internal iliac artery causing severe stenosis. The basilar fills distally. Clinically indicated a follow-up conventional angiogram can be done for further evaluation. There is no blush to suggest acute GI bleed. Colonic diverticulosis without evidence of acute diverticulitis. All CT scans at this facility are performed using low dose modulation techniques as appropriate to perform exam including the following: automated exposure control; use of iterative reconstruction technique; adjustment of the mA and/or kV according to patient size (this includes techniques or standardized protocols for targeted exams where dose is matched to indication/reason for exam). Labs Labs: Laboratory Results - last 24 hr 01/14/25 01/14/25 01/14/25 15:19 17:35 23:03 WBC 16.7 H 15.2 H RBC 3.63 L 3.39 L Hgb 11.4 L 10.6 L 9.4 L Hct 34.1 L 31.7 L 28.2 L MCV 93.9 93.5 MCH 31.4 31.3 MCHC 33.4 33.4 RDW 13.6 13.6 Plt Count 291 258 MPV 9.5 9.5 Immature Gran % (Auto) 0.8 H 0.7 H Neut % (Auto) 86.3 H 86.6 H Lymph % (Auto) 9.6 L 9.4 L [place] % (Auto) 3.1 3.2 Eos % (Auto) 0.0 0.0 Baso % (Auto) 0.2 0.1 L Lymph # (Auto) 1.61 1.43 [place] # (Auto) 0.5 0.5 Eos # (Auto) 0.0 0.0 Baso # (Auto) 0.0 0.0 Abs Immat Gran (auto) 0.13 H 0.11 H Absolute Neuts (auto) 14.4 H 13.1 H Absolute Nucleated RBC 0.000 0.000 Nucleated RBC % 0.0 0.0 PT 13.9 INR 1.1 APTT 22.7 Sodium 140 136 L Potassium 4.7 4.6 Chloride 106 104 Carbon Dioxide 14 L 20 L Anion Gap 20 H 12 BUN 59 H 57 H Creatinine 1.85 H 1.77 H Estim Creat Clear Calc 29 27 Estimated GFR 35 L 37 L Glucose 230 H 159 H POC Capillary Glucose Lactic Acid 6.2 H* 5.2 H* 3.8 H Calcium 9.3 8.9 Magnesium 1.6 Total Bilirubin 1.8 H AST 36 ALT 44 Alkaline Phosphatase 48 Troponin I 0.032 Total Protein 7.9 Albumin 4.7 Procalcitonin 0.1 TSH (Reflex) 1.940 Blood Type A Positive Antibody Screen Negative 01/15/25 01/15/25 03:54 14:21 WBC 13.0 H RBC 2.91 L Hgb 9.1 L Hct 27.6 L MCV 94.8 MCH 31.3 MCHC 33.0 RDW 13.8 Plt Count 230 MPV 9.7 Immature Gran % (Auto) 0.5 Neut % (Auto) 72.5 Lymph % (Auto) 19.1 [place] % (Auto) 7.6 Eos % (Auto) 0.1 Baso % (Auto) 0.2 Lymph # (Auto) 2.49 [place] # (Auto) 1.0 H Eos # (Auto) 0.0 Baso # (Auto) 0.0 Abs Immat Gran (auto) 0.06 H Absolute Neuts (auto) 9.5 H Absolute Nucleated RBC 0.000 Nucleated RBC % 0.0 PT INR APTT Sodium 137 Potassium 4.5 Chloride 104 Carbon Dioxide 23 Anion Gap 10 BUN 53 H Creatinine 1.66 H Estim Creat Clear Calc 32 Estimated GFR 40 L Glucose 125 H POC Capillary Glucose 103 Lactic Acid Calcium 8.5 Magnesium 1.6 Total Bilirubin 1.4 H AST 37 ALT 24 Alkaline Phosphatase 37 L Troponin I Total Protein 6.1 L Albumin 3.8 Procalcitonin TSH (Reflex) Blood Type Antibody Screen
[2025-01-15] MEDS: POTASSIUM CHLORIDE 20 MEQ PACKET (FOR LIQUID) 40 MEQ PO (16:02)
[2025-01-16] VITALS (10 sets, daily range): BP systolic 108–126; BP diastolic 65–74; PULSE 60–75; RESP 14–22; TEMP 36.7–37.2; O2SAT 96–99
[2025-01-16 00:13] LABS: Troponin I 0.025 ng/mL (0.000-0.034)
[2025-01-16 04:20] LABS: Hematocrit 25.7 % (42.0-52.0); Hemoglobin 8.3 g/dL (14.0-18.0); Immature Granulocyte Percent A 0.5 % (0-0.5); Lymphocytes Absolute Auto 3.37 K/mm3 (0.9-3.2); Mean Corpuscular HGB Conc 32.3 g/dl (32-36); Mean Corpuscular Hemoglobin 31.3 pg (26-34); Mean Corpuscular Volume 97.0 fl (80-100); Nucleated Red Blood Cells Absolute Auto 0.000 K/mm3 (0.0-0.012); Nucleated Red Blood Cells Perc 0.0 % (0.0-0.2); Platelet Count Result 197 k/mm3 (150-375); Red Blood Count 2.65 M/mm3 (4.6-6.20); White Blood Count 10.0 K/mm3 (4.5-10.0)
[2025-01-16 05:05] LABS: Alanine Aminotransferase 29 U/L (6-50); Albumin Level 3.5 g/dL (3.5-5.1); Alkaline Phosphatase 40 U/L (38-126); Anion Gap 7 mmol/L (4-12); Aspartate Amino Transferase 44 U/L (17-59); Bilirubin,Total 1.5 mg/dL (0.2-1.3); Blood Urea Nitrogen 32 mg/dL (9-20); Calcium 8.6 mg/dL (8.4-10.2); Carbon Dioxide 26 mmol/L (22-30); Chloride 105 mmol/L (98-107); Estimated CRCL calculation 34 ml/min; Estimated Glomerular Filt Rate 42; Glucose 100 mg/dL (65-110); Potassium 4.3 mmol/L (3.4-5.0); Sodium 138 mmol/L (137-145); Total Protein 6.0 g/dL (6.3-8.2)
[2025-01-16] MEDS: LACTATED RINGERS 1,000 ML 100 ML IV CONT ×2 (05:54→16:06)
[2025-01-16 08:40] LABS: Magnesium 1.8 mg/dL (1.6-2.3)
[2025-01-16] MEDS: PANTOPRAZOLE 40 MG TABLET PO (08:56)
[2025-01-16] MEDS: METOPROLOL TARTRATE 25 MG TABLET PO ×2 (08:56→21:18)
[2025-01-16 09:54] LABS: Add Urine Microscopic? NO; Appearance Urine Clear (Clear); Glucose Urine UA Negative (Negative); Leukocyte Esterase Ur Negative LEU/UL (Negative); Nitrate Urine Negative (Negative); Specific Grav Ur 1.011 (1.001-1.035)
--- NOTE | 2025-01-16 10:13 | PM.IMPN ---
Progress Note: A&P Assessment and Plan (1) Acute upper GI bleed: Code(s): K92.2 - Gastrointestinal hemorrhage, unspecified Status: Acute Assessment and Plan: --->CTA abdomen pelvis performed in the ER demonstrates diverticulosis without diverticulitis. There is marked atherosclerotic plaque at the origin of the right internal iliac artery causing severe stenosis, the basilar fills distally. When patient is more stable and serum creatinine has improved we could perform a conventional angiogram. - hemodynamically stable. -started on Clear liquid diet. NPO at this time for EGD -->GI consultation. EGD today -->Could be due to aspirin 325 mg p.o. q.day. -->trend hemoglobin --11.4--10.6--9.4--9.1--8.3. -->Currently on Pantoprazole 40 mg PO qam. (2) Sinus tachycardia: Code(s): R00.0 - Tachycardia, unspecified Status: Acute Assessment and Plan: -->It is reported patient was started on diltiazem in the ER for AFib with RVR. -->EKG demonstrates sinus tachycardia. -->Patient is currently in SR 61. - Discontinue diltiazem. -Restart [employer] metoprolol tartrate 25 mg p.o. b.i.d.. - TSH 1.940. - Hold [employer] lisinopril and amlodipine. - Troponin on the normal high value of 0.032 on admission, recheck was 0.025. - Patient denies chest pain. (3) Elevated serum creatinine: Code(s): R79.89 - Other specified abnormal findings of blood chemistry Status: Acute Assessment and Plan: - Elevated serum creatinine trending down: 1.85>1.77>1.66>1.59. - Patient unaware of any previous kidney disease. - Continue to trend renal function. (4) Acidosis, lactic: Code(s): E87.20 - Acidosis, unspecified Status: Acute Assessment and Plan: Lactic acidosis: 6.2 on admission, 5.2 on repeat. - Does not appear the patient was given any volume resuscitation - lactated Ringer's at 100 cc/hour, recheck lactic acid at midnight was 3.8. - Lactic acid today 2.7>2.2. Stop LR, good oral intake. (5) RADHA (acute kidney injury): Code(s): N17.9 - Acute kidney failure, unspecified Status: Acute Assessment and Plan: --> unaware of renal disease history --> trend labs. Encourage water intake. BUN - 59--57--53->32 creat 1.85--1.77-1.66->1.59 GFR - 35--37--40->42 (6) Hypertension associated with type 2 diabetes mellitus: Code(s): E11.59 - Type 2 diabetes mellitus with other circulatory complications; I15.2 - Hypertension secondary to endocrine disorders Status: Acute Assessment and Plan: - Accu-Cheks a.c. HS with low-dose insulin sliding scale - hypoglycemia protocol. Subjective Date/time seen: 01/16/25 10:13 Interval history: Patient sitting up in bed. Patient denies chest pain, palpitations, headache, dizziness, nausea, or vomiting. Transferred from IMU to [facility] today. Review of Systems Review of Systems: All systems reviewed & are unremarkable except as noted in HPI and below Exam Const: General: comfortable and no acute distress Resp: Effort & Inspection: normal respiratory effort Auscultation: clear to auscultation bilaterally Cardio: Rate: regular rate Rhythm: regular rhythm GI: GI Palp: Yes Soft to palpation Auscultation: normal bowel sounds Neuro: Speech: normal speech Extrem: General: no pedal edema Psych: Mental Status: mental status grossly normal Affect: normal affect Objective Data Vital Signs Vital Signs: Vital Signs - 24 hr 01/15/25 12:00 01/15/25 12:00 01/15/25 13:32 Temperature 98.2 F 98.3 F Pulse Rate 64 62 64 Respiratory Rate 16 20 Blood Pressure 104/66 108/65 Pulse Oximetry 96 96 Oxygen Delivery Room Air Oxygen Flow Rate 01/15/25 13:38 01/15/25 14:48 01/15/25 14:58 Temperature Pulse Rate 67 64 61 Respiratory Rate 20 19 19 Blood Pressure 115/70 108/65 116/68 Pulse Oximetry 100 95 97 Oxygen Delivery Non-Rebreather Mask Room Air Room Air Oxygen Flow Rate 4 01/15/25 16:00 01/15/25 18:00 01/15/25 20:00 Temperature Pulse Rate 64 73 70 Respiratory Rate Blood Pressure Pulse Oximetry Oxygen Delivery Oxygen Flow Rate 01/15/25 20:18 01/15/25 20:47 01/15/25 22:00 Temperature 98.2 F Pulse Rate 69 75 64 Respiratory Rate 16 Blood Pressure 120/71 Pulse Oximetry 95 Oxygen Delivery Oxygen Flow Rate 01/16/25 00:00 01/16/25 00:00 01/16/25 02:00 Temperature 98.1 F Pulse Rate 65 65 65 Respiratory Rate 16 Blood Pressure 108/70 Pulse Oximetry 96 Oxygen Delivery Oxygen Flow Rate 01/16/25 04:00 01/16/25 05:54 01/16/25 08:00 Temperature 98.3 F Pulse Rate 62 63 72 Respiratory Rate 22 H Blood Pressure 125/74 Pulse Oximetry 97 Oxygen Delivery Oxygen Flow Rate 01/16/25 08:56 Temperature Pulse Rate 75 Respiratory Rate Blood Pressure Pulse Oximetry Oxygen Delivery Oxygen Flow Rate Intake/Output Intake/Output: Intake & Output 01/13/25 01/14/25 01/15/25 01/16/25 23:59 23:59 23:59 23:59 Intake Total 2977 1350 Output Total 800 1300 Balance 2177 50 Meds/Results Medications: Active Medications Generic Name Dose Route Start Last Admin Trade Name Freq PRN Reason Stop Dose Admin Lactated Ringer's 1,000 mls @ 100 mls/hr 01/14/25 20:45 01/16/25 05:54 Lr - Lactated Ringers Iv IV CONT 100 mls/hr .Q10H PITO Administration Metoprolol Tartrate 25 mg 01/14/25 21:00 01/16/25 08:56 Metoprolol Tartrate 25 Mg Tablet PO 25 mg Q12HR PITO Administration Pantoprazole Sodium 40 mg 01/16/25 09:00 01/16/25 08:56 Pantoprazole 40 Mg Tablet PO 40 mg QAM PITO Administration Trimethobenzamide HCl 200 mg 01/14/25 20:48 Trimethobenzamide Hcl 200 Mg/2 Ml Vial IM Q6H PRN Nausea And Vomiting Radiology Results: ITS Impressions Chest X-Ray 01/14/25 15:37 Impression: No acute cardiopulmonary abnormality. Abdomen/Pelvis CTA 01/14/25 16:38 IMPRESSION: There is marked atherosclerotic plaque at the origin of the right internal iliac artery causing severe stenosis. The basilar fills distally. Clinically indicated a follow-up conventional angiogram can be done for further evaluation. There is no blush to suggest acute GI bleed. Colonic diverticulosis without evidence of acute diverticulitis. All CT scans at this facility are performed using low dose modulation techniques as appropriate to perform exam including the following: automated exposure control; use of iterative reconstruction technique; adjustment of the mA and/or kV according to patient size (this includes techniques or standardized protocols for targeted exams where dose is matched to indication/reason for exam). Labs Labs: Laboratory Results - last 24 hr 01/15/25 01/15/25 01/16/25 14:21 23:34 03:41 WBC 10.0 RBC 2.65 L Hgb 8.3 L Hct 25.7 L MCV 97.0 MCH 31.3 MCHC 32.3 RDW 13.9 Plt Count 197 MPV 9.6 Immature Gran % (Auto) 0.5 Neut % (Auto) 57.5 Lymph % (Auto) 33.8 [place] % (Auto) 6.7 Eos % (Auto) 1.1 Baso % (Auto) 0.4 Lymph # (Auto) 3.37 H [place] # (Auto) 0.7 H Eos # (Auto) 0.1 Baso # (Auto) 0.0 Abs Immat Gran (auto) 0.05 H Absolute Neuts (auto) 5.7 Absolute Nucleated RBC 0.000 Nucleated RBC % 0.0 Sodium 138 Potassium 4.3 Chloride 105 Carbon Dioxide 26 Anion Gap 7 BUN 32 H D Creatinine 1.59 H Estim Creat Clear Calc 34 Estimated GFR 42 L Glucose 100 POC Capillary Glucose 103 Lactic Acid Calcium 8.6 Magnesium Total Bilirubin 1.5 H AST 44 ALT 29 Alkaline Phosphatase 40 Troponin I 0.025 Total Protein 6.0 L Albumin 3.5 Urine Color Urine Appearance Urine pH Ur Specific [place] Urine Protein Urine Glucose (UA) Urine Ketones Ur Blood (Man) Urine Nitrate Urine Bilirubin Urine Urobilinogen Leukocyte Esterase Rfl 01/16/25 01/16/25 08:12 09:41 WBC RBC Hgb Hct MCV MCH MCHC RDW Plt Count MPV Immature Gran % (Auto) Neut % (Auto) Lymph % (Auto) [place] % (Auto) Eos % (Auto) Baso % (Auto) Lymph # (Auto) [place] # (Auto) Eos # (Auto) Baso # (Auto) Abs Immat Gran (auto) Absolute Neuts (auto) Absolute Nucleated RBC Nucleated RBC % Sodium Potassium Chloride Carbon Dioxide Anion Gap BUN Creatinine Estim Creat Clear Calc Estimated GFR Glucose POC Capillary Glucose Lactic Acid 2.7 H Calcium Magnesium 1.8 Total Bilirubin AST ALT Alkaline Phosphatase Troponin I Total Protein Albumin Urine Color Yellow Urine Appearance Clear Urine pH 7.5 Ur Specific [place] 1.011 Urine Protein Negative Urine Glucose (UA) Negative Urine Ketones Negative Ur Blood (Man) Negative Urine Nitrate Negative Urine Bilirubin Negative Urine Urobilinogen 1.0 Leukocyte Esterase Rfl Negative Quality VTE Prophylaxis VTE prophylaxis: mechanical ordered
--- NOTE | 2025-01-16 10:26 | PC.NURSE ---
This patient, Hebert Zheng, was received from IMU on 01/16/25 at 1026. Patient/family oriented to unit policies and routines
--- NOTE | 2025-01-16 18:01 | P.PNAN_ITS ---
Anes - Prog Note Post-Op Date/Time: 01/16/25 18:01 Cardiovascular status: normal Respiratory status: normal Airway patency: baseline Mental status: baseline Post-Op hydration status: normal Vital Signs: Last Vital Signs Temp 36.8 C 01/16/25 12:38 Pulse 60 01/16/25 12:38 Resp 14 01/16/25 12:38 BP 114/65 01/16/25 12:38 Pulse Ox 97 01/16/25 12:38 O2 Del Method Room Air 01/15/25 14:58 O2 Flow Rate 4 01/15/25 13:38 Pain Score (VAS): 0 I/O: Intake & Output 01/16/25 01/16/25 01/16/25 07:59 15:59 23:59 Intake Total 1230 1750 800 Output Total 2915 987 7735 Balance -70 1100 -200 Laboratory Tests 01/16/25 03:41 01/16/25 03:41 01/15/25 01/16/25 01/16/25 23:34 03:41 08:12 WBC 10.0 RBC 2.65 L Hgb 8.3 L Hct 25.7 L MCV 97.0 MCH 31.3 MCHC 32.3 RDW 13.9 Plt Count 197 MPV 9.6 Immature Gran % (Auto) 0.5 Neut % (Auto) 57.5 Lymph % (Auto) 33.8 [place] % (Auto) 6.7 Eos % (Auto) 1.1 Baso % (Auto) 0.4 Lymph # (Auto) 3.37 H [place] # (Auto) 0.7 H Eos # (Auto) 0.1 Baso # (Auto) 0.0 Abs Immat Gran (auto) 0.05 H Absolute Neuts (auto) 5.7 Absolute Nucleated RBC 0.000 Nucleated RBC % 0.0 Sodium 138 Potassium 4.3 Chloride 105 Carbon Dioxide 26 Anion Gap 7 BUN 32 H D Creatinine 1.59 H Estim Creat Clear Calc 34 Estimated GFR 42 L Glucose 100 Lactic Acid 2.7 H Calcium 8.6 Magnesium 1.8 Total Bilirubin 1.5 H AST 44 ALT 29 Alkaline Phosphatase 40 Troponin I 0.025 Total Protein 6.0 L Albumin 3.5 Urine Color Urine Appearance Urine pH Ur Specific [place] Urine Protein Urine Glucose (UA) Urine Ketones Ur Blood (Man) Urine Nitrate Urine Bilirubin Urine Urobilinogen Leukocyte Esterase Rfl 01/16/25 01/16/25 09:41 13:54 WBC RBC Hgb Hct MCV MCH MCHC RDW Plt Count MPV Immature Gran % (Auto) Neut % (Auto) Lymph % (Auto) [place] % (Auto) Eos % (Auto) Baso % (Auto) Lymph # (Auto) [place] # (Auto) Eos # (Auto) Baso # (Auto) Abs Immat Gran (auto) Absolute Neuts (auto) Absolute Nucleated RBC Nucleated RBC % Sodium Potassium Chloride Carbon Dioxide Anion Gap BUN Creatinine Estim Creat Clear Calc Estimated GFR Glucose Lactic Acid 2.2 H Calcium Magnesium Total Bilirubin AST ALT Alkaline Phosphatase Troponin I Total Protein Albumin Urine Color Yellow Urine Appearance Clear Urine pH 7.5 Ur Specific [place] 1.011 Urine Protein Negative Urine Glucose (UA) Negative Urine Ketones Negative Ur Blood (Man) Negative Urine Nitrate Negative Urine Bilirubin Negative Urine Urobilinogen 1.0 Leukocyte Esterase Rfl Negative Post-procedural complaints: none Patient Feedback: Patient satisfied with anesthetic care.
[2025-01-17 04:42] LABS: Hematocrit 26.8 % (42.0-52.0); Hemoglobin 8.7 g/dL (14.0-18.0); Immature Granulocyte Percent A 0.9 % (0-0.5); Lymphocytes Absolute Auto 2.82 K/mm3 (0.9-3.2); Mean Corpuscular HGB Conc 32.5 g/dl (32-36); Mean Corpuscular Hemoglobin 31.2 pg (26-34); Mean Corpuscular Volume 96.1 fl (80-100); Nucleated Red Blood Cells Absolute Auto 0.000 K/mm3 (0.0-0.012); Nucleated Red Blood Cells Perc 0.0 % (0.0-0.2); Platelet Count Result 205 k/mm3 (150-375); Red Blood Count 2.79 M/mm3 (4.6-6.20); White Blood Count 9.5 K/mm3 (4.5-10.0)
[2025-01-17 04:58] LABS: Alanine Aminotransferase 38 U/L (6-50); Albumin Level 3.6 g/dL (3.5-5.1); Alkaline Phosphatase 43 U/L (38-126); Anion Gap 6 mmol/L (4-12); Aspartate Amino Transferase 52 U/L (17-59); Bilirubin,Total 1.3 mg/dL (0.2-1.3); Blood Urea Nitrogen 26 mg/dL (9-20); Calcium 8.3 mg/dL (8.4-10.2); Carbon Dioxide 27 mmol/L (22-30); Chloride 104 mmol/L (98-107); Estimated CRCL calculation 33 ml/min; Estimated Glomerular Filt Rate 42; Glucose 116 mg/dL (65-110); Magnesium 2.0 mg/dL (1.6-2.3); Potassium 4.3 mmol/L (3.4-5.0); Sodium 137 mmol/L (137-145); Total Protein 6.1 g/dL (6.3-8.2)
[2025-01-17 06:02] VITALS: BP 132/66; PULSE 51; RESP 16; TEMP 36.5; O2SAT 97
--- NOTE | 2025-01-17 07:23 | P.PNIM_ITS ---
Progress Note: A&P Assessment and Plan (1) GI bleed: Code(s): K92.2 - Gastrointestinal hemorrhage, unspecified Status: Acute Assessment and Plan: Status post EGD Hemoglobin stable overnight Okay to discharge from a standpoint (2) Erosive gastritis: Code(s): K29.60 - Other gastritis without bleeding Status: Acute Assessment and Plan: Seen on EGD Follow-up new GI outpatient 1 month pantoprazole 40 mg orally once a day Okay to discharge from GI standpoint Okay continue aspirin per GI Cardiology recommending low-dose aspirin due to GI bleed (3) Sinus tachycardia: Code(s): R00.0 - Tachycardia, unspecified Status: Acute Assessment and Plan: Discontinue diltiazem. Restart RN PRIMARY CARE metoprolol tartrate 25 mg p.o. b.i.d.. TSH 1.940. Hold RN PRIMARY CARE lisinopril and amlodipine (4) RADHA (acute kidney injury): Code(s): N17.9 - Acute kidney failure, unspecified Status: Acute Assessment and Plan: Creatinine on admission 1.85, unknown baseline Creatinine Trending down Encourage p.o. (5) Hypertension associated with type 2 diabetes mellitus: Code(s): E11.59 - Type 2 diabetes mellitus with other circulatory complications; I15.2 - Hypertension secondary to endocrine disorders Status: Acute Assessment and Plan: Holding antihypertensives due to GI bleed Accu-Cheks a.c. HS with low-dose insulin sliding scale hypoglycemia protocol (6) CAD (coronary artery disease): Code(s): I25.10 - Atherosclerotic heart disease of [place] coronary artery without angina pectoris Status: Acute Assessment and Plan: There is marked atherosclerotic plaque at the origin of the right internal iliac artery causing severe stenosis, the basilar fills distally. When patient is more stable and serum creatinine has improved we could perform a conventional angiogram. Per cardiology due to ischemic foot ulcers patient continue statins and does aspect tolerated Outpatient workup for alteration (7) Afib: Code(s): I48.91 - Unspecified atrial fibrillation Status: Acute Assessment and Plan: Cardiology consulted 30 day event monitor as an outpatient to check for any recurrent atrial fibrillation or flutter not a candidate for anticoagulation due to GI bleed continue low-dose metoprolol tartrate Subjective Date/time seen: 01/17/25 07:23 Interval history: 79 male here for GI bleed status post EGD Hemoglobin stable this morning and vital signs stable Review of Systems Review of Systems: 12 systems were reviewed and are negativ e except for as per HPI. Exam Narrative: General: well appearing, appears stated age. HEENT: normocephalic, atraumatic. Mucous membranes moist. EOMI, PERRLA, bilateral sclera anicteric, no conjunctival injection. Neck supple without JVD, lymphadenopathy, or bruit. Respiratory: clear to ascultation bilaterally. No rales/rhonic/wheezes. Cardiovascular: Regular rate and rhythm, normal S1-S2 upon ascultation. No murmurs, rubs, or clicks. PMI is nondisplaced, capillary refill less than 3 second. Abdomen: Soft, round, no pulsatile masses, nondistended and nontender. No rebound, no guarding. No CVA tenderness, no hepatosplenomegaly. Bowel sounds present to all four quadrants. No high pitch or tinkling sounds, resonant to percussion. Extremities: No cyanosis, clubbing, or edema present. Pulses are palpable 2/2. Active ROM to all four extremities. Neuro: Alert and orientated x 4. PERRLA. Cranial nerves 2-12 intact without focal deficit. Skin: Warm, dry, and intact, without rash, erythema, or lesion. Psych: pleasant, cooperative, normal speech, normal affect, no hallucinations, no dysarthia Objective Data Vital Signs Vital Signs: Vital Signs - 24 hr 01/16/25 08:00 01/16/25 08:56 01/16/25 12:38 Temperature 98.3 F 98.2 F Pulse Rate 72 75 60 Respiratory Rate 22 H 14 Blood Pressure 125/74 114/65 Pulse Oximetry 97 97 Oxygen Delivery Fraction of Inspired Oxygen 01/16/25 19:45 01/16/25 20:00 01/16/25 21:18 Temperature Pulse Rate 74 60 Respiratory Rate Blood Pressure Pulse Oximetry 99 Oxygen Delivery Room Air Room Air Fraction of Inspired Oxygen 21 01/16/25 21:52 01/17/25 06:02 Temperature 98.9 F 97.7 F Pulse Rate 75 51 L Respiratory Rate 16 16 Blood Pressure 126/67 132/66 Pulse Oximetry 99 97 Oxygen Delivery Fraction of Inspired Oxygen Intake/Output Intake/Output: Intake & Output 01/14/25 01/15/25 01/16/25 01/17/25 23:59 23:59 23:59 23:59 Intake Total 2977 3780 400 Output Total 800 3225 650 Balance 2177 555 -250 Meds/Results Medications: Active Medications Generic Name Dose Route Start Last Admin Trade Name Freq PRN Reason Stop Dose Admin Docusate Sodium 100 mg 01/16/25 10:27 Docusate Sodium 100 Mg Capsule PO Q12H PRN Constipation Metoprolol Tartrate 25 mg 01/14/25 21:00 01/16/25 21:18 Metoprolol Tartrate 25 Mg Tablet PO 25 mg Q12HR PITO Administration Pantoprazole Sodium 40 mg 01/16/25 09:00 01/16/25 08:56 Pantoprazole 40 Mg Tablet PO 40 mg QAM PITO Administration Polyethylene Glycol 17 gm 01/16/25 10:30 01/16/25 12:05 Polyethylene Glycol 3350 17 Gm Powd.Pack PO 17 gm QAM PITO Administration Trimethobenzamide HCl 200 mg 01/14/25 20:48 Trimethobenzamide Hcl 200 Mg/2 Ml Vial IM Q6H PRN Nausea And Vomiting Radiology Results: ITS Impressions Chest X-Ray 01/14/25 15:37 Impression: No acute cardiopulmonary abnormality. Abdomen/Pelvis CTA 01/14/25 16:38 IMPRESSION: There is marked atherosclerotic plaque at the origin of the right internal iliac artery causing severe stenosis. The basilar fills distally. Clinically indicated a follow-up conventional angiogram can be done for further evaluation. There is no blush to suggest acute GI bleed. Colonic diverticulosis without evidence of acute diverticulitis. All CT scans at this facility are performed using low dose modulation techniques as appropriate to perform exam including the following: automated exposure control; use of iterative reconstruction technique; adjustment of the mA and/or kV according to patient size (this includes techniques or standardized protocols for targeted exams where dose is matched to indication/reason for exam). Labs Labs: Laboratory Results - last 24 hr 01/16/25 01/16/25 01/16/25 08:12 09:41 13:54 WBC RBC Hgb Hct MCV MCH MCHC RDW Plt Count MPV Immature Gran % (Auto) Neut % (Auto) Lymph % (Auto) [place] % (Auto) Eos % (Auto) Baso % (Auto) Lymph # (Auto) [place] # (Auto) Eos # (Auto) Baso # (Auto) Abs Immat Gran (auto) Absolute Neuts (auto) Absolute Nucleated RBC Nucleated RBC % Sodium Potassium Chloride Carbon Dioxide Anion Gap BUN Creatinine Estim Creat Clear Calc Estimated GFR Glucose Lactic Acid 2.7 H 2.2 H Calcium Magnesium 1.8 Total Bilirubin AST ALT Alkaline Phosphatase Total Protein Albumin Urine Color Yellow Urine Appearance Clear Urine pH 7.5 Ur Specific [place] 1.011 Urine Protein Negative Urine Glucose (UA) Negative Urine Ketones Negative Ur Blood (Man) Negative Urine Nitrate Negative Urine Bilirubin Negative Urine Urobilinogen 1.0 Leukocyte Esterase Rfl Negative 01/17/25 04:20 WBC 9.5 RBC 2.79 L Hgb 8.7 L Hct 26.8 L MCV 96.1 MCH 31.2 MCHC 32.5 RDW 13.4 Plt Count 205 MPV 9.3 Immature Gran % (Auto) 0.9 H Neut % (Auto) 57.8 Lymph % (Auto) 29.7 [place] % (Auto) 7.8 Eos % (Auto) 3.4 Baso % (Auto) 0.4 Lymph # (Auto) 2.82 [place] # (Auto) 0.7 H Eos # (Auto) 0.3 Baso # (Auto) 0.0 Abs Immat Gran (auto) 0.09 H Absolute Neuts (auto) 5.5 Absolute Nucleated RBC 0.000 Nucleated RBC % 0.0 Sodium 137 Potassium 4.3 Chloride 104 Carbon Dioxide 27 Anion Gap 6 BUN 26 H Creatinine 1.60 H Estim Creat Clear Calc 33 Estimated GFR 42 L Glucose 116 H Lactic Acid Calcium 8.3 L Magnesium 2.0 Total Bilirubin 1.3 AST 52 ALT 38 Alkaline Phosphatase 43 Total Protein 6.1 L Albumin 3.6 Urine Color Urine Appearance Urine pH Ur Specific [place] Urine Protein Urine Glucose (UA) Urine Ketones Ur Blood (Man) Urine Nitrate Urine Bilirubin Urine Urobilinogen Leukocyte Esterase Rfl
[2025-01-17 08:21] VITALS: BP 151/92; PULSE 96; RESP 18; TEMP 36.7; O2SAT 96
[2025-01-17 08:22] VITALS: PULSE 96; RESP 18; O2SAT 96
[2025-01-17] MEDS: PANTOPRAZOLE 40 MG TABLET PO (08:22)
[2025-01-17] MEDS: METOPROLOL TARTRATE 25 MG TABLET PO (08:22)
--- NOTE | 2025-01-17 15:56 | P.DS_ITS ---
DS: Admitting Diagnosis Discharge Date 01/17/25 Admitting Diagnosis GI bleed DS: Discharge Diagnosis Discharge Diagnosis (1) GI bleed: Code(s): K92.2 - Gastrointestinal hemorrhage, unspecified Status: Acute Assessment and Plan: Status post EGD Hemoglobin stable overnight Okay to discharge from a standpoint (2) Erosive gastritis: Code(s): K29.60 - Other gastritis without bleeding Status: Acute Assessment and Plan: Seen on EGD Okay to discharge from GI standpoint Okay continue aspirin per GI Cardiology recommending low-dose aspirin due to GI bleed and pantoprazole 40 mg orally once a day Follow-up new GI outpatient 1 month (3) Sinus tachycardia: Code(s): R00.0 - Tachycardia, unspecified Status: Acute Assessment and Plan: Discontinue diltiazem. Restart [facility] CLERK metoprolol tartrate 25 mg p.o. b.i.d.. TSH 1.940. Hold [facility] [employer] lisinopril and amlodipine (4) RADHA (acute kidney injury): Code(s): N17.9 - Acute kidney failure, unspecified Status: Acute Assessment and Plan: Creatinine on admission 1.85, unknown baseline Creatinine Trending down Encourage p.o. (5) Hypertension associated with type 2 diabetes mellitus: Code(s): E11.59 - Type 2 diabetes mellitus with other circulatory complications; I15.2 - Hypertension secondary to endocrine disorders Status: Acute Assessment and Plan: Holding antihypertensives due to GI bleed Accu-Cheks a.c. HS with low-dose insulin sliding scale hypoglycemia protocol (6) CAD (coronary artery disease): Code(s): I25.10 - Atherosclerotic heart disease of [place] coronary artery without angina pectoris Status: Acute Assessment and Plan: There is marked atherosclerotic plaque at the origin of the right internal iliac artery causing severe stenosis, the basilar fills distally. When patient is more stable and serum creatinine has improved we could perform a conventional angiogram. Per cardiology due to ischemic foot ulcers patient continue statins and does aspect tolerated Outpatient workup for alteration (7) Afib: Code(s): I48.91 - Unspecified atrial fibrillation Status: Acute Assessment and Plan: Cardiology consulted 30 day event monitor as an outpatient to check for any recurrent atrial fibr illation or flutter not a candidate for anticoagulation due to GI bleed continue low-dose metoprolol tartrate DS: Summary Hospital Course Reason for hospitalization: GI bleed Hospital Course: 79-year-old male with past medical history remote CABG, prior smoking, [id number] diabetes mellitus, dyslipidemia, BPH, hypertension. Patient presents to [facility] ER on 01/14/2025 with the acute onset of multiple episodes of coffee-ground emesis and dark stools. In the ED patient was found to be in AFib with RVR on started on diltiazem and resolved by the time cardiology saw. CT angiogram during his hospitalization reportedly showed marked atherosclerotic plaque at the origin of the right internal iliac artery causing severe stenosis. Patient denies claudication at present to suggest any significant stenosis in other major vasculature in the lower extremities. No ischemic foot ulcers. Patient may follow-up outpatient with Cardiology at the [place] for this issue. Cardiology recommended a 30 day event monitor. No new medications started by Cardiology. EGD showed 7 cm long segment of Ramsey's mucosa moderate acute compression gastritis and no active bleeding at this time GI states that he can discharge from their standpoint. Patient's history is feeling great, vital signs are stable, no signs currently bleeding, hemoglobin stable. Patient is medically ready for discharge. Status at Discharge Functional status at discharge: independent ambulation Time Spent with Patient Time attestation: Total time spent providing and/or coordinating discharge services: Time spent: Greater than 30 minutes Exam Narrative: General: well appearing, appears stated age. HEENT: normocephalic, atraumatic. Mucous membranes moist. EOMI, PERRLA, bilateral sclera anicteric, no conjunctival injection. Neck supple without JVD, lymphadenopathy, or bruit. Respiratory: clear to ascultation bilaterally. No rales/rhonic/wheezes. Cardiovascular: Regular rate and rhythm, normal S1-S2 upon ascultation. No murmurs, rubs, or clicks. PMI is nondisplaced, capillary refill less than 3 second. Abdomen: Soft, round, no pulsatile masses, nondistended and nontender. No rebound, no guarding. No CVA tenderness, no hepatosplenomegaly. Bowel sounds present to all four quadrants. No high pitch or tinkling sounds, resonant to percussion. Extremities: No cyanosis, clubbing, or edema present. Pulses are palpable 2/2. Active ROM to all four extremities. Neuro: Alert and orientated x 4. PERRLA. Cranial nerves 2-12 intact without focal deficit. Skin: Warm, dry, and intact, without rash, erythema, or lesion. Psych: pleasant, cooperative, normal speech, normal affect, no hallucinations, no dysarthia DS: Data Data Completed and Pending Completed studies during hospitalization: Pending at discharge 01/15/25 14:39 Surgical [PTH] Routine Labs on day of discharge: Labs from last 24 hours 01/17/25 04:20 WBC 9.5 RBC 2.79 L Hgb 8.7 L Hct 26.8 L MCV 96.1 MCH 31.2 MCHC 32.5 RDW 13.4 Plt Count 205 MPV 9.3 Immature Gran % (Auto) 0.9 H Neut % (Auto) 57.8 Lymph % (Auto) 29.7 [place] % (Auto) 7.8 Eos % (Auto) 3.4 Baso % (Auto) 0.4 Lymph # (Auto) 2.82 [place] # (Auto) 0.7 H Eos # (Auto) 0.3 Baso # (Auto) 0.0 Abs Immat Gran (auto) 0.09 H Absolute Neuts (auto) 5.5 Absolute Nucleated RBC 0.000 Nucleated RBC % 0.0 Sodium 137 Potassium 4.3 Chloride 104 Carbon Dioxide 27 Anion Gap 6 BUN 26 H Creatinine 1.60 H Estim Creat Clear Calc 33 Estimated GFR 42 L Glucose 116 H Calcium 8.3 L Magnesium 2.0 Total Bilirubin 1.3 AST 52 ALT 38 Alkaline Phosphatase 43 Total Protein 6.1 L Albumin 3.6 Discharge Plan Discharge Consulting providers: Johnie Delgado Discharging Clinician: Flores Owen Anticipated Discharge Date/Time: 01/17/25 12:59 Patient Disposition: Home Activity: may shower Diet: heart healthy Discharge Instructions: Discharge instructions: Take medications as prescribed New medications prescribed: Your now taking 81 mg aspirin per day and Protonix daily to help prevent a GI bleed You are activity as tolerated Monitor blood pressures Avoid social areas, you wear a mask when in social settings Encouraged to continue with yearly vaccinations Return to the emergency department if he developed sudden shortness of breath, chest pain, nausea, vomiting, upset stomach or intractable diarrhea Return to the emergency department if you develop fever greater than 101.5 [facility] Thank you for choosing [facility] for your healthcare needs Patient Instructions: Antibiotic Form, Gastrointestinal Bleeding (DC) Patient Language: Frisian Stand Alone Forms: General Discharge Information Follow-up/Referrals: Johnie Delgado MD [Physician, Cardiology] Referral Note: Or your montessori paraprofessional in 1 month [facility] [Primary Care Provider, Medical] - 1 Week Referral Note: right internal iliac artery causing severe stenosis follow-up with [facility] Discharge Medications: New pantoprazole 40 mg Tablet,Delayed Release (Dr/Ec) 40 mg PO QAM Qty: 30 0RF aspirin 81 mg capsule 81 mg PO DAILY Qty: 30 0RF Continued amlodipine 5 mg tablet 5 mg PO DAILY metoprolol tartrate 50 mg tablet 25 mg PO BID allopurinol 100 mg tablet 100 mg PO DAILY lisinopril 40 mg tablet 40 mg PO DAILY simvastatin 80 mg tablet 40 mg PO HS metformin 1,000 mg tablet 500 mg PO BID finasteride 5 mg tablet 5 mg PO DAILY cholecalciferol (vitamin D3) 25 mcg (1,000 unit) capsule 25 mcg PO DAILY Discontinued aspirin 325 mg capsule 325 mg PO DAILY Date of admission: 01/14/25 17:28 Primary Care Provider: [facility] [facility] Admitting Provider: Helene Lopez Attending physician on admission: Helene Lopez Condition: Serious Quality VTE Prophylaxis VTE prophylaxis: mechanical ordered Hospitalist MIPS Heart Failure (Exclusion) Patient has history of Heart Transplant or Left Ventricular Assistive Device?: No IF YES, STOP HERE Heart Failure (Qualifier) Patient has current or prior documentation of LVEF less than or equal to 40%, or mod/servere depressed LVSF?: No IF NO, STOP HERE
== END 2025-01-17 13:49 | disposition home or self-care (01) | DRG 378 ==
LOC: ANHED 16:42 → ANHIMU 17:54 → ANH2MED 01-16 10:18
PROVIDERS: General Practice; Internal Medicine Gastroenterology; Nurse Practitioner Family; Physician Assistant; Admitting Provider Internal Medicine; Emergency Provider Student in an Organized Health Care Education/Training Program; Visit Provider Nurse Practitioner Gerontology
PROC: 0DJ08ZZ Inspection of Upper Intestinal Tract, Via Natural or Artificial Opening Endoscopic (ICD-10-PCS; principal; 2025-01-15 14:15)
DX: K29.01 Acute gastritis with bleeding (principal); E87.21 Acute metabolic acidosis; N17.9 Acute kidney failure, unspecified; K22.70 Barrett's esophagus without dysplasia; K26.7 Chronic duodenal ulcer without hemorrhage or perforation; K44.9 Diaphragmatic hernia without obstruction or gangrene; T39.015A Adverse effect of aspirin, initial encounter; E66.9 Obesity, unspecified; I48.91 Unspecified atrial fibrillation; R00.0 Tachycardia, unspecified; D64.9 Anemia, unspecified; E11.9 Type 2 diabetes mellitus without complications; R79.89 Other specified abnormal findings of blood chemistry; I10 Essential (primary) hypertension; D72.829 Elevated white blood cell count, unspecified; F12.90 Cannabis use, unspecified, uncomplicated; I25.10 Atherosclerotic heart disease of native coronary artery without angina pectoris; I73.9 Peripheral vascular disease, unspecified; Z79.84 Long term (current) use of oral hypoglycemic drugs; Z95.1 Presence of aortocoronary bypass graft; Z68.30 Body mass index [BMI] 30.0-30.9, adult; Z87.891 Personal history of nicotine dependence; Z86.718 Personal history of other venous thrombosis and embolism; Z79.82 Long term (current) use of aspirin
CPT/HCPCS: 36415; 71045; 74174; 80048; 80053; 81003; 82948; 83605; 83735; 84145; 84443; 84484; 85014; 85018; 85025; 85610; 85730; 86850; 86900; 86901; 87040; 88305; 88342; 93005; 96374; 96375; 96376; 99285; A9270; J1163; J2405; J2470; J7120; Q9967